=== PATIENT | female | born 1955 | race Caucasian/White ===

== ENCOUNTER 2023-12-03 17:44 | Inpatient (IN) | payer MEDICARE, OTHER, SELFPAY ==
[2023-12-03 12:19] VITALS: BP 176/97
[2023-12-03] MEDS: DUONEB 3 ML INH ×2 (13:18→15:56)
[2023-12-03] MEDS: DECADRON 10 MG PO (13:35)
[2023-12-03 13:51] LABS: % Basophils 0.5 % (0-2); % Eosinophils 2.1 % (0-6); % Immature Granulocytes 0.8 % (0-0.5); % Lymphocytes 11.9 % (20.5-51.1); % Monocytes 8.6 % (1.7-9.3); % Neutrophils 76.1 % (42.2-75.2); Absolute Basophils 0.1 10^3/uL (0-0.2); Absolute Eosinophils 0.2 10^3/uL (0-0.7); Absolute Immature Granulocytes 0.1 10^3/uL (0-0.05); Absolute Lymphocytes 1.1 10^3/uL (1.2-3.4); Absolute Monocytes 0.8 10^3/uL (0.1-0.6); Absolute Neutrophils 7.2 10^3/uL (1.4-6.5); Hematocrit 45.5 % (37.0-47.0); Hemoglobin 14.7 g/dL (12.0-16.0); Mean Corp Hgb Conc. 32.3 g/dL (33.0-37.0); Mean Corpuscular Hgb 28.2 pg (27.0-31.0); Mean Corpuscular Volume 87.3 fL (81.0-99.0); Mean Platelet Volume 8.8 fL (7.4-10.4); Nucleated Red Blood Cells % 0 %; Platelet Count 175 10^3/uL (130-400); Red Blood Cell Count 5.21 10^6/uL (4.20-5.40); Red Cell Dist. Width 13.5 % (11.5-14.5); White Blood Cell Count 9.4 10^3/uL (4.8-10.8)
[2023-12-03 14:34] LABS: ALT (SGPT) 19 U/L (0-35); AST (SGOT) 27 U/L (14-36); Albumin 3.6 g/dl (3.5-5.0); Alkaline Phosphatase 87 U/L (38-126); Blood Urea Nitrogen 12 mg/dl (7-17); Calcium 9.6 mg/dl (8.4-10.2); Carbon Dioxide 34 mmol/L (22-30); Chloride 98 mmol/L (98-107); Glucose 120 mg/dl (70-99); Potassium 4.2 mmol/L (3.5-5.1); Sodium 137 mmol/L (135-145); Total Bilirubin 0.5 mg/dl (0.2-1.3); Total Protein 6.2 g/dl (6.3-8.2); eGFR > 60.00
[2023-12-03 15:08] VITALS: BP 134/74
--- NOTE | 2023-12-03 15:55 | ED.GENMED ---
History of Present Illness
General
Chief Complaint: Breathing Problem
Source: patient and spouse
Exam Limitations: none
Time Seen by Provider: 12/03/23 12:51
Nursing documentation reviewed up to this point in time: agreed with
Travel History
Have you had any contact with someone who has COVID-19?: No
Do you have any symptoms of coronavirus? Fever > 100 degrees, chills, cough, shortness of breath, sore throat, loss of taste or smell, muscle aches, or headache?: No
History of Present Illness
History of Present Illness:
68-year-old female past medical history of COPD presenting to the emergency department today with concerns of upper respiratory symptoms over the past week was initially treated with azithromycin by her primary care doctor but has had ongoing
symptoms and worsening shortness of breath over the past 2 days or so. Denies specific chest pain nausea vomiting fevers.
Review of Systems
Review of Systems
Allergies reviewed?: Yes
All Other Systems: ROS reviewed and negative except as documented in HPI and ROS
Phy Exam
Physical Exam
Physical Exam:
GENERAL: Alert , in no apparent distress
EYE: pupils equal and reactive
NECK: Supple, no significant adenopathy.
ENT: o/p clr, mmm.
CARDIAC: Regular rate and rhythm .
LUNGS: Diffuse inspiratory and expiratory wheezing
ABDOMEN: Soft, without focal tenderness, no r/g, no cvat
NEUROLOGICAL: Alert and oriented, no focal neuro deficits
SKIN: Warm and dry, skin intact.
MUSCULOSKELETAL: No edema, well perfused.
PSYCH: Normal and appropriate interaction.
Scores
Heart Failure Risk
Heart Failure Risk Score: Not Applicable
Course
Orders/Labs/Results
Orders:
Orders
12/03/23 12:58
Dexamethasone [Decadron] 10 mg PO NOW STA
Ipratropium/Albuterol Sulfate [Duoneb] 3 ml INH R NOW ONE
Chest [CR Chest - 2 Views ] Urgent
Comment:
Reason For Exam: sob cough
12/03/23 13:17
EKG [Electrocardiogram (*1)] Urgent
Reason for Study: Shortness of Breath
EKG- Treatment ONCE
12/03/23 13:42
CBC/With Diff [Complete Blood Count/With Diff] Urgent
CMP [Comprehensive Metabolic Panel] Urgent
Lactic Acid Urgent
12/03/23 15:51
Ipratropium/Albuterol Sulfate [Duoneb] 3 ml INH R NOW ONE
Abnormal Lab Results
12/03/23
13:42
MCHC 32.3 L g/dL
(33.0-37.0)
Abs Immat Gran (auto) 0.1 H 10^3/uL
(0-0.05)
Absolute Neuts (auto) 7.2 H 10^3/uL
(1.4-6.5)
Absolute Lymphs (auto) 1.1 L 10^3/uL
(1.2-3.4)
Absolute Monos (auto) 0.8 H 10^3/uL
(0.1-0.6)
Immature Gran % 0.8 H %
(0-0.5)
Neutrophils % 76.1 H %
(42.2-75.2)
Lymphocytes % 11.9 L %
(20.5-51.1)
Carbon Dioxide 34 H mmol/L
(22-30)
Glucose 120 H mg/dl
(70-99)
Total Protein 6.2 L g/dl
(6.3-8.2)
12/03/23 13:42
12/03/23 13:42
Vital Signs
Initial and Last Documented VS:
Initial Vital Signs
Temp Pulse Resp BP Pulse Ox
98.4 F 109 18 176/97 83
12/03/23 12:19 06/03/24 12:19 12/03/23 12:19 12/03/23 12:19 12/03/23 12:19
Last Documented Vital Signs
Temp Pulse Resp BP Pulse Ox
98.4 F 84 16 134/74 97
12/03/23 12:19 12/03/23 15:08 12/03/23 15:08 12/03/23 15:08 12/03/23 15:08
MDM/Problems Addressed
MDM/Problems Addressed:
68-year-old female presenting to the emergency department today with concerns of worsening shortness of breath with viral syndrome 1 week ago. Upon arrival tachycardic and hypertensive O2 sat in the low 80s improving with nasal cannula oxygen.
Patient had diffuse wheezing with started on DuoNeb as well as steroid chest x-ray without signs of pneumonia. Vital signs improving after treat lungs improving pulse ox still drop into the high 80s when off of nasal cannula oxygen. Does not use
oxygen at home plan to admit for further treatment and monitoring.
*Critical Care Note
Total Time (30-74mins, 75-104mins- exclusive of procedures): Not Applicable
ED Attending Note
-
Portions of this chart may have been created with voice recognition software.� Occasional wrong word or��sound alike� substitutions may have occurred due to the inherent limitations of voice recognition software.
Discharge Plan
Departure
Patient Disposition: Admit
Date of Disposition: 12/03/23
Time of Disposition: 15:59
Admit to: Telemetry
Admit to doctor: Kellee
Presentation/result/management discussed w/ accepting MD/DO: Hospitalist
Patient with high blood pressure during this ER visit?: No
Condition: Good
Covid-19: Not Applicable
Discharge Problem:
COPD exacerbation, Hypoxemia
Referrals:
Enriqueta Arora CRNP [Family Provider] -
Interventions
Interventions:
*Risk Screen - Suicide Last Done: 12/03/23 12:19
*General Assessment Last Done: 12/03/23 12:19
*Neglect/Abuse Screening Last Done: 12/03/23 12:19
ED- Fall Risk Assessment Last Done: 12/03/23 13:46
*ED COVID-19 Vaccine History Last Done: 12/03/23 12:19
ED- Cardiac Assessment Last Done: 12/03/23 13:46
ED- Pulmonary Assessment Last Done: 12/03/23 13:46
Discharge Date and Time
Print Language: INDONESIAN
--- NOTE | 2023-12-03 16:46 | HPS.HSE ---
Addendum entered and electronically signed by Jamey Hernandes MD 12/03/23 17:09:
I saw and examined the patient.
The ECOLOGY TEACHER or PA's note was reviewed and I agree with the note.
Comment: 68-year-old female with past medical history of COPD came to the hospital with shortness of breath and chest tightness. Profusely wheezing in ED. IV Decadron, DuoNebs given. Per patient she has finished course of azithromycin a week ago.
She does not see any chief power dispatcher outpatient. Chest x-ray without pneumonia. Consult pulmonary. DuoNeb 4 times daily, as needed. Start IV steroids. Mucinex, Tessalon Perles. Acapella. If symptoms do not improve then would add doxycycline.
Currently on 2 L. Wean oxygen as tolerated
General: Comfortable,mild dyspnea
HEENT: Anicteric, Moist mucous membranes and Oxygen (Nasal Cannula)
Respiratory: Wheezes (Diffuse Expiratory Wheeze) and Non Labored Respirations
Cardiac: S1/S2 and Regular Rhythm
GI: Soft and Non Tender
Rectal: Deferred by Provider
Musculoskeletal: No Clubbing and No Edema
Skin: Warm and Dry
Neuro: Awake, Alert, Oriented and Nonfocal/grossly intact
I spent a total of 77 minutes with the patient or on the floor. More than 50% of this time involved counseling and coordination of care.
Original Note:
Family Physician
-
Family Physician: Enriqueta Arora
Chief Complaint
-
Shortness of Breath
History of Present Illness
This is a 68 year old female with past medical history of COPD presents with shortness of breath x 2 days. Patient reports she noticed she was becoming very short of breath yesterday at home after she had a cold that her PCP treated with Zithromax,
which she finished on 11/27/23. She admits her dyspnea continued to worsen prompting her to present to the emergency department today. She notes she has been to the hospital previously for COPD exacerbation several years ago but has never required
intubation. Additionally, she reports a nonproductive cough. She denies fevers, chills, and sweats.
Medical History
Past Medical History
Past Medical History: Reports Other
Additional Past Medical History:
COPD
Solitary Kidney
Past Surgical History: Reports Other
Additional Past Surgical History:
Nephrectomy
Tonsillectomy
Social History
Tobacco: Former Smoker (Quit about 5 years ago)
Family History
Family History: Not pertinent
Allergies / Home Medications
Allergies reflects when Allergies were last updated in [facility].
Home Medications with original date entered in [facility]
Allergy/Medication List:
Allergies
Allergy/AdvReac Type Severity Reaction Status Date / Time
Sulfa (Sulfonamide Allergy Tongue Verified 12/03/23 12:22
Antibiotics) Swelling
Home Medications
albuterol sulfate 90 mcg/actuation aerosol inhaler (ProAir HFA) 2 puff inhalation R Q6HPRN PRN sob 12/03/23
fluticasone fur. 200 mcg-umeclid 62.5 mcg-vilant 25 mcg inhalat.powder (Trelegy Ellipta) 1 inh inhalation R DAILY 12/03/23
ibuprofen 200 mg tablet (Advil) 200 mg PO Q6HPRN PRN muscle pains 12/03/23
roflumilast 500 mcg tablet 500 mcg PO DAILY 12/03/23
Review of Systems
-
A 12 point ROS was completed and negative except as noted: Yes
Constitutional: Denies Fever or Chills
Respiratory: Reports Cough and Trouble Breathing
Cardiac: Denies Chest Pain or Palpitations
Physical Exam
Vital Signs
Vital Signs
Temp Pulse Resp BP Pulse Ox
98.4 F 84 16 134/74 97
12/03/23 12:19 12/03/23 15:08 12/03/23 15:08 12/03/23 15:08 12/03/23 15:08
Physical Exam
General: Comfortable and Conversant (Slight conversational dyspnea dropping pulse ox to 89% )
HEENT: Anicteric, Moist mucous membranes and Oxygen (Nasal Cannula)
Respiratory: Wheezes (Diffuse Expiratory Wheeze) and Non Labored Respirations
Cardiac: S1/S2 and Regular Rhythm
GI: Soft and Non Tender
Rectal: Deferred by Provider
Musculoskeletal: No Clubbing and No Edema
Skin: Warm and Dry
Neuro: Awake, Alert, Oriented and Nonfocal/grossly intact
Laboratory Results
-
12/03/23 13:42
12/03/23 13:42
Laboratory Results
Lactic Acid 1.0 mmol/L (0.7-2.0) 12/03/23 13:42
Total Bilirubin 0.5 mg/dl (0.2-1.3) 12/03/23 13:42
AST 27 U/L (14-36) 12/03/23 13:42
ALT 19 U/L (0-35) 12/03/23 13:42
Alkaline Phosphatase 87 U/L (38-126) 12/03/23 13:42
Data Reviewed
-
Lab Data: Labs Reviewed by me
Impression/Plan
-
Acute Hypoxic Respiratory Insufficiency secondary to Acute COPD Exacerbation
-Consult Pulmonary
-Continue supplemental oxygen
-Continue Decadron 4mg q6
-Continue Pulmicort neb
-Continue Duoneb QID and PRN
-Add Mucinex and Tessalon Perles
-Continue roflumilast as prior to admission
DVT proph: Lovenox
Code Status: Full Code
--- NOTE | 2023-12-03 17:09 | W.PN.UPDATE ---
Update Note
Progress Note Update
For billing purpose only
[2023-12-03 20:30] VITALS: BMI 26.8
[2023-12-03] MEDS: PULMICORT 0.5 MG INH (20:30)
--- NOTE | 2023-12-03 20:30 | PTCARENOTE ---
Received patient from ED via stretcher. Patient ambulated from stretcher to bed. AAOx3, no current complaints of pain. Patient reports BLISS, 91-93% on 2L O2. Oriented patient to room and placed call melton within reach.
[2023-12-03] MEDS: DUONEB INH (20:43)
[2023-12-03] MEDS: LOVENOX 40 MG SC (21:46)
[2023-12-03] MEDS: MUCINEX 600 MG PO (21:46)
[2023-12-03] MEDS: DECADRON 4 MG IV (21:47)
[2023-12-03 23:40] VITALS: BP 173/84
[2023-12-04 03:26] VITALS: BP 149/83
[2023-12-04] MEDS: DECADRON 4 MG IV ×4 (03:54→22:24)
[2023-12-04 04:54] LABS: Hematocrit 44.9 % (37.0-47.0); Hemoglobin 14.4 g/dL (12.0-16.0); Mean Corp Hgb Conc. 32.1 g/dL (33.0-37.0); Mean Corpuscular Volume 87.2 fL (81.0-99.0); Mean Platelet Volume 9.4 fL (7.4-10.4); Platelet Count 200 10^3/uL (130-400); Red Blood Cell Count 5.15 10^6/uL (4.20-5.40); Red Cell Dist. Width 13.4 % (11.5-14.5); White Blood Cell Count 7.7 10^3/uL (4.8-10.8)
[2023-12-04 05:24] LABS: Blood Urea Nitrogen 18 mg/dl (7-17); Calcium 9.4 mg/dl (8.4-10.2); Carbon Dioxide 32 mmol/L (22-30); Chloride 97 mmol/L (98-107); Estimated Creatinine Clearance 70 ml/min; Glucose 132 mg/dl (70-99); Potassium 4.9 mmol/L (3.5-5.1); Sodium 133 mmol/L (135-145); eGFR > 60.00
[2023-12-04] MEDS: PULMICORT 0.5 MG INH ×2 (07:22→21:19)
[2023-12-04] MEDS: DUONEB 3 ML INH ×4 (07:22→21:18)
[2023-12-04 07:30] VITALS: BP 165/91
[2023-12-04] MEDS: DALIRESP 500 MCG PO (08:41)
[2023-12-04] MEDS: MUCINEX 600 MG PO ×2 (08:41→20:30)
[2023-12-04] MEDS: LIDOCAINE 4% PATCH 2 PATCH TOPICAL (08:42)
[2023-12-04 08:43] VITALS: BP 165/91
[2023-12-04 08:49] LABS: Glucose - Point of Care 143 mg/dl (70-99)
--- NOTE | 2023-12-04 09:22 | PTCARENOTE ---
Patient reports pain to the R side of chest specifically under R breast. 'Sharp pain that worsens with deep breathing.' Pulse ox of 92% on 2L. Pulmonary with patient at bedside. Urgent cat scan of chest ordered.
--- NOTE | 2023-12-04 09:40 | CON.PUL ---
Consultation
Consultation Request
Date/Time Consultation Requested: 12/04/23-8 AM
Date/Time Consultation Performed: 12/04/23-8:30 AM
Requesting Provider: Hospitalist
Performing Provider: Dr. Jamison
Reason for Consultation: Shortness of breath
Medical History
-
Chief Complaint: Shortness of breath
History of Present Illness:
68-year-old female with a history of COPD maintained on Trelegy not on home oxygen with long smoking history quit 5 years ago, 'still smoking pot' who presented with COPD exacerbation-pulmonary consulted for COPD exacerbation and pleuritic chest
pain 12/04/2023. Patient states that she has severe right-sided pleuritic chest pain. She been coughing for 3 weeks. She admits to increasing shortness of breath, increased wheezing, using her albuterol rescue inhaler frequently but denies any
chest congestion, productive cough, hemoptysis, anorexia, unintentional weight loss, abdominal pain, reflux, leg swelling.
Past Medical History
Past Medical History: None (COPD. Former [id number]-[id number]-year quit 5 years ago. Marijuana smoker. Solitary kidney. Nephrectomy. Tonsillectomy.)
Social History
Tobacco: Former Smoker ([id number] quit 5 years ago)
Drug: Marijuana
Living: With Family
Occupational Exposures: No known asbestos exposure
Environmental Exposures: no known tuberculosis exposure
Family History
Family History: Reviewed & Not Pertinent
Allergies / Home Medications
Allergies
Allergy/AdvReac Type Severity Reaction Status Date / Time
Sulfa (Sulfonamide Allergy Tongue Verified 12/03/23 12:22
Antibiotics) Swelling
Home Medications
�Medication �Instructions �Recorded �Confirmed �Last Taken �Type
albuterol sulfate 90 mcg/actuation 2 puff inhalation R Q6HPRN PRN sob 12/03/23 12/03/23 Unknown History
aerosol inhaler (ProAir HFA)
fluticasone fur. 200 mcg-umeclid 1 inh inhalation R DAILY 06/09/2212/03/23 12/03/23 History
62.5 mcg-vilant 25 mcg Lung/Breathing Issues
inhalat.powder (Trelegy Ellipta)
ibuprofen 200 mg tablet (Advil) 200 mg PO Q6HPRN PRN muscle pains 12/03/23 12/03/23 12/02/23 History
roflumilast 500 mcg tablet 500 mcg PO DAILY Lung/Breathing 12/03/23 12/03/23 12/03/23 History
Issues
Review of Systems
-
Unable to Obtain full review of systems at this time due to: Other (Per HPI)
Vitals / Labs / Diagnostic Testing
Vital Signs
Temp Pulse Resp BP Pulse Ox
97.3 F 92 24 165/91 92
12/04/23 07:30 12/04/23 07:30 12/04/23 07:30 12/04/23 07:30 12/04/23 08:58
Lab Data
12/04/23 04:39
12/04/23 04:39
Diagnostic Testing:
Physical Exam
-
Exam:
Well-nourished and well-developed in no apparent distress
HEENT-atraumatic, normocephalic
Neck-supple, no JVD, no bruit
Heart-regular rate and rhythm-no murmurs, rubs or gallops
Chest with diminished breath sounds, prolonged expiratory time, forced expiratory wheezes and no crackles
Abdomen-soft, nontender, nondistended, no hepatosplenomegaly
Extremities-no cyanosis, clubbing, edema and good peripheral pulses
Integument-intact, no rashes, lesions or ecchymosis
Neurology-alert and oriented, nonfocal motor and sensory exam
Assessment
-
68-year-old female with a history of COPD maintained on Trelegy not on home oxygen with long smoking history quit 5 years ago, 'still smoking pot' who presented with COPD exacerbation-pulmonary consulted for COPD exacerbation and pleuritic chest
pain 12/04/2023.
COPD-suspect Gold stage III with acute exacerbation
Right-sided pleuritic chest pain-CT chest pending
Mild hyponatremia
Hyperglycemia
Conditions present prior to admission:
COPD.
Former [id number]-[id number]-bgxc-year quit 5 years ago.
Marijuana smoker.
Solitary kidney.
Nephrectomy.
Tonsillectomy.
Plan
Patient requires admission for severe COPD exacerbation
Supplemental oxygen as needed-does not have home oxygen
Assess discharge supplemental oxygen needs closer to time of discharge
Consider ABG-admission bicarb mildly elevated suggests possible underlying chronic mild hypercapnia
BiPAP if needed
Check CT chest with PE protocol with right-sided pleuritic chest pain
Duo nebs
Pulmicort nebulizers
Mucolytic's
Decadron 4 mg IV every 6 hours initiated
Antitussives
Incentive spirometry
Acapella
Consider vest if difficulties mobilizing secretions
Consider chest physiotherapy if difficulties mobilizing secretions
No obvious signs of infection
Observe off antibiotics
Monitor blood sugars
Insulin supplementation as needed
Marijuana smoking cessation counseling ongoing-she states she will quit
DVT prophylaxis-on Lovenox
GI prophylaxis recommended if on steroids for prolonged period
Early nutrition
Early mobilization
Reviewed with nursing, respiratory therapy, and primary team.
Outpatient pulmonary follow-up recommended
Diagnostic data:
Chest x-ray 12/03/2023-NAD
Data Reviewed
-
EKG: Report reviewed by me
Radiology: Report reviewed by me
Medical Tests (Nuc Med, Echo etc): Report reviewed by me
Labs: Labs reviewed by me
Old Records: Reviewed
Total Time Spent with Patient (in minutes): 65
[2023-12-04] MEDS: MORPHINE SULFATE 1 MG IV ×2 (09:41→10:58)
[2023-12-04] MEDS: BENADRYL 50 MG IV (11:27)
[2023-12-04] MEDS: SOLU-CORTEF 200 MG IV (11:28)
--- NOTE | 2023-12-04 11:30 | W.PN.HOSP.TC ---
Today's Communication/Plan
-
Monitor vital signs
see plan
Continue with IV steroids, labs
Pulmonary following
CT chest
pain control
Assessment / Plan
Assessment / Plan
General: Comfortable,mild dyspnea
HEENT: Anicteric, Moist mucous membranes and Oxygen (Nasal Cannula)
Respiratory: Wheezes (Diffuse Expiratory Wheeze)
Cardiac: S1/S2 and Regular Rhythm
GI: Soft and Non Tender
Musculoskeletal: No Edema
Neuro: Awake, Alert, Oriented and Nonfocal/grossly intact
Acute Hypoxic Respiratory Insufficiency secondary to Acute COPD Exacerbation
Pulmonary following
Patient COPD is not controlled, has been using rescue Hailer frequently
On Trelegy at home
Continue with IV Decadron, budesonide and DuoNebs
-Continue supplemental oxygen
-Add Mucinex and Tessalon Perles
-Continue roflumilast as prior to admission
elevated BP
no prior hx
could be 2/2 pain
hydralazine prn
mild hyponatremia
monitor
Right sided pleuritic chest pain
CT ordered by pulmonary
reports allergy to contrast; prep ordered
lidocaine patch for pain
DVT proph: Lovenox
Code Status: Full Code
Anticipated Discharge: > 48 hours
Subjective/Interval History
-
Date of Service: December 04, 2023
has pleuritic pain today
Objective Data
-
Labs:
Laboratory Results
12/04/23
04:39
WBC 7.7
Hgb 14.4
Hct 44.9
Plt Count 200
Sodium 133 L
Potassium 4.9
Chloride 97 L
Carbon Dioxide 32 H
BUN 18 H
Creatinine 0.7
Glucose 132 H
Calcium 9.4
Vital Signs:
Vital Signs
Temp Pulse Resp BP Pulse Ox
97.3 F 92 24 165/91 92
12/04/23 07:30 12/04/23 07:30 12/04/23 07:30 12/04/23 07:30 12/04/23 08:58
I&O
12/03/23 12/04/23 12/05/23
06:59 06:59 06:59
Intake Total 780 / 780
Balance 780 / 780
[2023-12-04] MEDS: PROTONIX IV 40 MG IV (11:58)
[2023-12-04] MEDS: DILAUDID 0.5 MG IV ×3 (11:58→22:31)
[2023-12-04] MEDS: NSS (PRESERVATIVE FREE) 10 ML IV (11:58)
[2023-12-04 14:25] VITALS: BP 127/62
--- NOTE | 2023-12-04 14:46 | CM ---
CM consult received for Advance Directive. I met with Fatmata briefly, as she had a vistor in the room. I provided her with the advance directive and provided my card for her to contact me after she has reviewed the form.
CM will follow to answer any questions Felicita has regarding the completion of the living will.
[2023-12-04 23:00] VITALS: BP 127/58
[2023-12-04 23:59] VITALS: BP 122/54
[2023-12-05] MEDS: DECADRON 4 MG IV ×3 (04:35→17:08)
[2023-12-05] MEDS: DILAUDID 0.5 MG IV ×3 (04:58→20:54)
[2023-12-05 05:54] LABS: % Basophils 0.2 % (0-2); % Immature Granulocytes 1.5 % (0-0.5); % Lymphocytes 4.3 % (20.5-51.1); % Monocytes 5.5 % (1.7-9.3); % Neutrophils 88.5 % (42.2-75.2); Absolute Immature Granulocytes 0.2 10^3/uL (0-0.05); Absolute Lymphocytes 0.6 10^3/uL (1.2-3.4); Absolute Monocytes 0.8 10^3/uL (0.1-0.6); Absolute Neutrophils 13.3 10^3/uL (1.4-6.5); Hematocrit 41.7 % (37.0-47.0); Hemoglobin 12.9 g/dL (12.0-16.0); Mean Corp Hgb Conc. 30.9 g/dL (33.0-37.0); Mean Corpuscular Hgb 28.4 pg (27.0-31.0); Mean Corpuscular Volume 91.9 fL (81.0-99.0); Mean Platelet Volume 9.7 fL (7.4-10.4); Nucleated Red Blood Cells % 0 %; Platelet Count 213 10^3/uL (130-400); Red Blood Cell Count 4.54 10^6/uL (4.20-5.40); Red Cell Dist. Width 13.9 % (11.5-14.5)
[2023-12-05 06:17] LABS: Blood Urea Nitrogen 27 mg/dl (7-17); Calcium 9.1 mg/dl (8.4-10.2); Carbon Dioxide 33 mmol/L (22-30); Chloride 97 mmol/L (98-107); Estimated Creatinine Clearance 70 ml/min; Glucose 153 mg/dl (70-99); Potassium 4.8 mmol/L (3.5-5.1); Sodium 134 mmol/L (135-145); eGFR > 60.00
[2023-12-05 07:40] VITALS: BP 129/60
[2023-12-05] MEDS: DUONEB 3 ML INH ×4 (07:41→19:20)
[2023-12-05] MEDS: PULMICORT 0.5 MG INH ×2 (07:41→19:20)
[2023-12-05 08:50] VITALS: BP 129/60
[2023-12-05] MEDS: MUCINEX 600 MG PO ×2 (09:26→20:54)
[2023-12-05] MEDS: PROTONIX IV 40 MG IV (09:26)
[2023-12-05] MEDS: DALIRESP 500 MCG PO (09:26)
[2023-12-05] MEDS: NSS (PRESERVATIVE FREE) 10 ML IV (09:27)
[2023-12-05] MEDS: FLUSH (NSS) 2 FLUSH IV ×3 (09:28→17:09)
[2023-12-05] MEDS: TESSALON PERLES 200 MG PO ×3 (09:32→21:04)
[2023-12-05] MEDS: LIDOCAINE 4% PATCH TOPICAL (09:34)
--- NOTE | 2023-12-05 10:04 | W.PN.PUL.V3 ---
Today's Communication / Plan
-
.
CT chest noted.
Rectus sheath hematoma noted
Wean oxygen.
Continue nebulizers.
Decrease Decadron
Assessment
-
68-year-old female with a history of COPD maintained on Trelegy not on home oxygen with long smoking history quit 5 years ago, 'still smoking pot' who presented with COPD exacerbation-pulmonary consulted for COPD exacerbation and pleuritic chest
pain 12/04/2023.
COPD-suspect Gold stage III with acute exacerbation
Right-sided pleuritic chest pain-CT chest -right rectus hematoma
Right upper lobe pulmonary nodule as well as other pulmonary nodules
Right abdominal rectus sheath hematoma
Mild hyponatremia
Hyperglycemia
Conditions present prior to admission:
COPD.
Former frdfym-37-[id number]-year quit 5 years ago.
Marijuana smoker.
Solitary kidney.
Nephrectomy.
Tonsillectomy.
Plan
.
Respiratory status slowly improving-continues to have significant wheezing.
Supplemental oxygen as needed-attempt to wean
Assess discharge supplemental oxygen needs closer to time of discharge
CT chest 12/04/23-negative for pulmonary embolism, upper abdomen, right side rectus hematoma, severe changes of emphysema, spiculated density medial right upper lobe, several small well-defined nodules are also seen in the lung, largest measuring 5 mm
in the right upper lobe and 3 mm in the left upper lobe
Will need a CT chest at a minimum in 3 months -CT chest ION-we will arrange for follow-up after this hospitalization
Duonebs
Pulmicort nebulizers
Mucolytic's
Decadron 4 mg IV every 6 hours initiated-will begin to decrease
Antitussives
Incentive spirometry
Acapella
Consider vest if difficulties mobilizing secretions
Consider chest physiotherapy if difficulties mobilizing secretions
No obvious signs of infection
Observe off antibiotics
Monitor blood sugars
Insulin supplementation as needed
Marijuana smoking cessation counseling ongoing-she states she will quit
DVT prophylaxis-on Lovenox
GI prophylaxis recommended if on steroids for prolonged period
Early nutrition
Early mobilization
Reviewed with nursing, respiratory therapy, and primary team.
Outpatient pulmonary follow-up recommended-needs repeat CT chest ION in 3 months, PFTs, yearly Lung cancer screening, etc.
Diagnostic data:
Chest x-ray 12/03/2023-NAD
CT chest 12/04/23-negative for pulmonary embolism, upper abdomen, right side rectus hematoma, severe changes of emphysema, spiculated density medial right upper lobe, several small well-defined nodules are also seen in the lung, largest measuring 5 mm
in the right upper lobe and 3 mm in the left upper lobe
Subjective Data
-
Date of Service:
Date of Service: December 05, 2023
Chief Complaint: Pulmonary Follow Up and Dyspnea Follow Up
Subjective:
Pain, much better controlled on Dilantin, no complaints of worsening sugars of breath, still has significant wheezing, no chest pain, pleurisy, or abdominal pain
Review of Systems
General: Other ( per HPI)
Objective Data
Data Reviewed
Vital Signs / I&O:
Vital Signs
Temp Pulse Resp BP Pulse Ox
97.4 F 78 18 129/60 93
12/05/23 07:40 12/05/23 08:10 12/05/23 08:10 12/05/23 07:40 12/05/23 08:10
Intake and Output
12/04/23 12/05/23 12/06/23
06:59 06:59 06:59
Intake Total 780 / 780 840 / 840
Balance 780 / 780 840 / 840
SaO2: 93
Nasal Cannula flow liters per minute: 2
Physical Exam
General: Respiratory Distress (n) and Comfortable
HEENT: Normocephalic, Anicteric and Moist Mucous Membranes
Cardiovascular: Regular Rhythm
Respiratory: Clear ( diminished breath sounds and prolonged expiratory time), Wheeze ( diffuse expiratory), Crackles (n), Rhonchi, Non-Labored Respirations, Accessory Resp Muscle Use (n) and Stridor (n)
GI: Soft and Non Distended
Neurology: Awake and No Motor Deficits
Skin: Good Color, Cyanosis (n) and Jaundice
Labs/Micro/Reports
Lab Data
12/05/23 04:38
12/05/23 04:38
--- NOTE | 2023-12-05 11:14 | W.PN.HOSP.TC ---
Today's Communication/Plan
-
Monitor vital signs and see plan
Pain today appears to be improving, continue with pain control
Still with cough, make Tessalon Perles standing
Wean oxygen as tolerated
Continue with nebs, steroids
Assessment / Plan
Assessment / Plan
General: Comfortable,mild dyspnea
HEENT: Anicteric, Moist mucous membranes and Oxygen (Nasal Cannula)
Respiratory: Wheezes (Diffuse Expiratory Wheeze)
Cardiac: S1/S2 and Regular Rhythm
GI: Soft and Non Tender
Musculoskeletal: No Edema
Neuro: Awake, Alert, Oriented and Nonfocal/grossly intact
Acute Hypoxic Respiratory Insufficiency secondary to Acute COPD Exacerbation
Pulmonary following
Patient COPD is not controlled, has been using rescue Hailer frequently
On Trelegy at home
Continue with IV Decadron, budesonide and DuoNebs
-Continue supplemental oxygen
-cwMucinex and Tessalon Perles
-Continue roflumilast as prior to admission
CT chest without PE, did show severe emphysema. Also showed pulmonary nodule. Right-sided rectus hematoma
Wean O2 as tolerated
Acute right-sided rectus hematoma likely secondary to persistent cough
Monitor
Ice application
Pain control
monitor hgb
elevated BP
no prior hx
could be 2/2 pain
hydralazine prn
mild hyponatremia
monitor
Right sided pleuritic chest pain
CT ordered by pulmonary
reports allergy to contrast; prep ordered
lidocaine patch for pain
DVT proph: SCD's
Code Status: Full Code
I spent a total of 52 minutes with the patient or on the floor. More than 50% of this time involved counseling and coordination of care.
Anticipated Discharge: > 48 hours
Subjective/Interval History
-
Date of Service: December 05, 2023
Pain is slowly improving
Objective Data
-
Labs:
Laboratory Results
12/05/23
04:38
WBC 15.0 H
Hgb 12.9
Hct 41.7
Plt Count 213
Sodium 134 L
Potassium 4.8
Chloride 97 L
Carbon Dioxide 33 H
BUN 27 H
Creatinine 0.7
Glucose 153 H
Calcium 9.1
Vital Signs:
Vital Signs
Temp Pulse Resp BP Pulse Ox
97.4 F 78 18 129/60 93
12/05/23 07:40 12/05/23 08:10 12/05/23 08:10 12/05/23 07:40 12/05/23 10:04
I&O
12/04/23 12/05/23 12/06/23
06:59 06:59 06:59
Intake Total 780 / 780 840 / 840
Balance 780 / 780 840 / 840
--- NOTE | 2023-12-05 13:14 | CM ---
Follow up re: Advance Directive today. Felicita did not look at it yet because she did not have her glasses, so I told her I would check back later today or tomorrow.
PLAN: F/U with Felicita regarding completion and/or questions re: advance directives.
[2023-12-05 15:15] VITALS: BP 127/59
[2023-12-05 22:50] VITALS: BP 151/79
[2023-12-06] MEDS: DECADRON 4 MG IV ×3 (03:13→17:00)
[2023-12-06] MEDS: DILAUDID 0.5 MG IV ×3 (03:14→22:31)
[2023-12-06 05:48] LABS: % Basophils 0.4 % (0-2); % Immature Granulocytes 3.6 % (0-0.5); % Lymphocytes 4.5 % (20.5-51.1); % Monocytes 7.2 % (1.7-9.3); % Neutrophils 84.3 % (42.2-75.2); Absolute Basophils 0.1 10^3/uL (0-0.2); Absolute Immature Granulocytes 0.5 10^3/uL (0-0.05); Absolute Lymphocytes 0.6 10^3/uL (1.2-3.4); Hemoglobin 12.6 g/dL (12.0-16.0); Mean Corp Hgb Conc. 31.5 g/dL (33.0-37.0); Mean Corpuscular Hgb 28.3 pg (27.0-31.0); Mean Corpuscular Volume 89.9 fL (81.0-99.0); Mean Platelet Volume 9.7 fL (7.4-10.4); Nucleated Red Blood Cells % 0 %; Platelet Count 214 10^3/uL (130-400); Red Blood Cell Count 4.45 10^6/uL (4.20-5.40); White Blood Cell Count 14.3 10^3/uL (4.8-10.8)
[2023-12-06 06:03] LABS: Blood Urea Nitrogen 26 mg/dl (7-17); Calcium 9.1 mg/dl (8.4-10.2); Carbon Dioxide 35 mmol/L (22-30); Chloride 97 mmol/L (98-107); Estimated Creatinine Clearance 70 ml/min; Glucose 130 mg/dl (70-99); Potassium 4.9 mmol/L (3.5-5.1); Sodium 137 mmol/L (135-145); eGFR > 60.00
[2023-12-06 07:55] VITALS: BP 149/77
[2023-12-06] MEDS: PULMICORT 0.5 MG INH ×2 (07:57→20:48)
[2023-12-06] MEDS: DUONEB 3 ML INH ×4 (07:57→20:48)
[2023-12-06] MEDS: PROTONIX IV 40 MG IV (09:20)
[2023-12-06] MEDS: NSS (PRESERVATIVE FREE) 10 ML IV (09:23)
[2023-12-06] MEDS: FLUSH (NSS) 2 FLUSH IV ×4 (09:23→22:32)
[2023-12-06] MEDS: TESSALON PERLES 200 MG PO ×3 (09:24→21:28)
[2023-12-06] MEDS: FLUSH (NSS) 1 FLUSH IV (09:24)
[2023-12-06] MEDS: MUCINEX 600 MG PO ×2 (09:24→21:27)
[2023-12-06] MEDS: DALIRESP 500 MCG PO (09:24)
[2023-12-06] MEDS: LIDOCAINE 4% PATCH TOPICAL (09:25)
--- NOTE | 2023-12-06 09:29 | W.PN.PUL.V3 ---
Today's Communication / Plan
-
No change in Decadron
Increase activity
Wean FiO2
Probable change to prednisone in the next 24 hours with slow taper
Outpatient pulm evaluation
Assessment
-
68-year-old female with a history of COPD maintained on Trelegy not on home oxygen with long smoking history quit 5 years ago, 'still smoking pot' who presented with COPD exacerbation-pulmonary consulted for COPD exacerbation and pleuritic chest
pain 12/04/2023.
COPD-suspect Gold stage III with acute exacerbation
Right-sided pleuritic chest pain-CT chest -right rectus hematoma
Right upper lobe pulmonary nodule as well as other pulmonary nodules
Right abdominal rectus sheath hematoma
Mild hyponatremia
Hyperglycemia
Conditions present prior to admission:
COPD.
Former [id number]-year quit 5 years ago.
Marijuana smoker.
Solitary kidney.
Nephrectomy.
Tonsillectomy.
Plan
.
Pulmonary status improving but still has quite a bit of wheezing
Supplemental oxygen as needed-attempt to wean
Assess discharge supplemental oxygen needs closer to time of discharge
CT chest 12/04/23-negative for pulmonary embolism, upper abdomen, right side rectus hematoma, severe changes of emphysema, spiculated density medial right upper lobe, several small well-defined nodules are also seen in the lung, largest measuring 5 mm
in the right upper lobe and 3 mm in the left upper lobe
Analgesia per primary service
Will need a CT chest at a minimum in 3 months -CT chest ION-we will arrange for follow-up after this hospitalization
Duonebs
Pulmicort nebulizers
Mucolytic's continue
Decadron 4 mg IV every 8 hours-no change today-possibly changed to prednisone 40-60 mg tomorrow with slow taper
Antitussives
Incentive spirometry
Acapella
Consider vest if difficulties mobilizing secretions
Consider chest physiotherapy if difficulties mobilizing secretions
No obvious signs of infection
Observe off antibiotics
Monitor blood sugars
Insulin supplementation as needed
Marijuana smoking cessation counseling ongoing-she states she will quit
DVT prophylaxis-on Lovenox
GI prophylaxis-on pantoprazole
Increase activity
Reviewed with nursing, respiratory therapy, and primary team.
Outpatient pulmonary follow-up recommended-needs repeat CT chest ION in 3 months, PFTs, yearly Lung cancer screening, etc.
Diagnostic data:
Chest x-ray 12/03/2023-NAD
CT chest 12/04/23-negative for pulmonary embolism, upper abdomen, right side rectus hematoma, severe changes of emphysema, spiculated density medial right upper lobe, several small well-defined nodules are also seen in the lung, largest measuring 5 mm
in the right upper lobe and 3 mm in the left upper lobe
Subjective Data
-
Date of Service:
Date of Service: December 06, 2023
Chief Complaint: Pulmonary Follow Up and Dyspnea Follow Up
Subjective:
Still wheezing, pain improved, some dyspnea on exertion, no chest pain or abdominal pain
Review of Systems
General: Other (Per HPI)
Objective Data
Data Reviewed
Vital Signs / I&O:
Vital Signs
Temp Pulse Resp BP Pulse Ox
97.9 F 85 16 149/77 92
12/06/23 07:55 12/06/23 08:01 12/06/23 08:01 12/06/23 07:55 12/06/23 08:01
Intake and Output
12/05/23 12/06/23 12/07/23
06:59 06:59 06:59
Intake Total 840 / 840 480 / 480
Balance 840 / 840 480 / 480
SaO2: 92
Nasal Cannula flow liters per minute: 2
Physical Exam
General: Respiratory Distress (n) and Comfortable
HEENT: Normocephalic, Anicteric and Moist Mucous Membranes
Cardiovascular: Regular Rhythm
Respiratory: Clear ( diminished breath sounds and prolonged expiratory time), Wheeze ( diffuse expiratory), Crackles (n), Rhonchi, Non-Labored Respirations, Accessory Resp Muscle Use (n) and Stridor (n)
GI: Soft and Non Distended
Neurology: Awake and No Motor Deficits
Skin: Good Color, Cyanosis (n) and Jaundice
Labs/Micro/Reports
Lab Data
12/06/23 04:43
12/06/23 04:43
--- NOTE | 2023-12-06 12:27 | W.PN.HOSP.TC ---
Today's Communication/Plan
-
Monitor vital signs and see plan
Still on oxygen, wean oxygen as tolerated
Continue with Decadron, DuoNebs
Pain control
Assessment / Plan
Assessment / Plan
General: Comfortable,mild dyspnea
HEENT: Anicteric, Moist mucous membranes and Oxygen (Nasal Cannula)
Respiratory: Wheezes
Cardiac: S1/S2 and Regular Rhythm
GI: Soft and Non Tender
Musculoskeletal: No Edema
Neuro: Awake, Alert, Oriented and Nonfocal/grossly intact
Acute Hypoxic Respiratory Insufficiency secondary to Acute COPD Exacerbation
Pulmonary following
Patient COPD is not controlled, has been using rescue Hailer frequently
On Trelegy at home
Continue with IV Decadron, budesonide and DuoNebs
-Continue supplemental oxygen
-cwMucinex and Tessalon Perles
-Continue roflumilast as prior to admission
CT chest without PE, did show severe emphysema. Also showed pulmonary nodule. Right-sided rectus hematoma
Wean O2 as tolerated
Acute right-sided rectus hematoma likely secondary to persistent cough
Monitor
Ice application
Pain control
monitor hgb
elevated BP
no prior hx
could be 2/2 pain
hydralazine prn
mild hyponatremia
monitor
Right sided pleuritic chest pain
CT ordered by pulmonary
reports allergy to contrast; prep ordered
lidocaine patch for pain
DVT proph: SCD's
Code Status: Full Code
I spent a total of 51 minutes with the patient or on the floor. More than 50% of this time involved counseling and coordination of care.
Anticipated Discharge: 24 - 48 hours
Subjective/Interval History
-
Date of Service: December 06, 2023
Pain is slowly improving
Objective Data
-
Labs:
Laboratory Results
12/06/23
04:43
WBC 14.3 H
Hgb 12.6
Hct 40.0
Plt Count 214
Sodium 137
Potassium 4.9
Chloride 97 L
Carbon Dioxide 35 H
BUN 26 H
Creatinine 0.7
Glucose 130 H
Calcium 9.1
Vital Signs:
Vital Signs
Temp Pulse Resp BP Pulse Ox
97.9 F 84 16 149/77 92
12/06/23 07:55 12/06/23 11:13 12/06/23 11:13 12/06/23 07:55 12/06/23 09:29
I&O
12/05/23 12/06/23 12/07/23
06:59 06:59 06:59
Intake Total 840 / 840 480 / 480
Balance 840 / 840 480 / 480
[2023-12-06 15:35] VITALS: BP 135/71
[2023-12-06 15:52] VITALS: O2SAT 77; O2SAT 90
--- NOTE | 2023-12-06 16:00 | CM ---
MICHA checked in with Felicita again today re: advance directive. She advised that she plans to complete the Advance Directive at home with her so they can talk through their decisions together. Respiratory completed assessment and may need
home O2 at discharge.
Plan: Discharge to home with possible need for home O2
--- NOTE | 2023-12-06 16:10 | CM ---
I checked in with Felicita again today re: Advance Directive. She is going to complete it at home with her so they can discuss their decisions and have good understanding of each other's goals of care.
Plan: Discharge to home; watch for home O2 needs.
[2023-12-06 23:09] VITALS: BP 144/73
[2023-12-07] MEDS: DECADRON 4 MG IV ×3 (02:13→18:02)
[2023-12-07] MEDS: FLUSH (NSS) 2 FLUSH IV (02:14)
[2023-12-07] MEDS: DUONEB 3 ML INH ×4 (07:26→19:35)
[2023-12-07] MEDS: PULMICORT 0.5 MG INH ×2 (07:26→19:35)
[2023-12-07 07:55] VITALS: BP 158/81
[2023-12-07 07:59] LABS: % Basophils 0.5 % (0-2); % Immature Granulocytes 5.4 % (0-0.5); % Monocytes 6.4 % (1.7-9.3); % Neutrophils 81.7 % (42.2-75.2); Absolute Basophils 0.1 10^3/uL (0-0.2); Absolute Immature Granulocytes 0.5 10^3/uL (0-0.05); Absolute Lymphocytes 0.6 10^3/uL (1.2-3.4); Absolute Monocytes 0.6 10^3/uL (0.1-0.6); Absolute Neutrophils 7.9 10^3/uL (1.4-6.5); Hematocrit 42.5 % (37.0-47.0); Hemoglobin 13.4 g/dL (12.0-16.0); Mean Corp Hgb Conc. 31.5 g/dL (33.0-37.0); Mean Corpuscular Hgb 28.4 pg (27.0-31.0); Mean Platelet Volume 9.9 fL (7.4-10.4); Nucleated Red Blood Cells % 0 %; Platelet Count 189 10^3/uL (130-400); Red Blood Cell Count 4.72 10^6/uL (4.20-5.40); Red Cell Dist. Width 13.8 % (11.5-14.5); White Blood Cell Count 9.7 10^3/uL (4.8-10.8)
[2023-12-07 08:50] LABS: Blood Urea Nitrogen 26 mg/dl (7-17); Calcium 9.2 mg/dl (8.4-10.2); Carbon Dioxide 36 mmol/L (22-30); Chloride 97 mmol/L (98-107); Estimated Creatinine Clearance 82 ml/min; Glucose 105 mg/dl (70-99); Potassium 5.1 mmol/L (3.5-5.1); Sodium 136 mmol/L (135-145); eGFR > 60.00
[2023-12-07] MEDS: MUCINEX 600 MG PO ×2 (09:01→19:55)
[2023-12-07] MEDS: NSS (PRESERVATIVE FREE) 10 ML IV (09:01)
[2023-12-07] MEDS: DALIRESP 500 MCG PO (09:01)
[2023-12-07] MEDS: LIDOCAINE 4% PATCH TOPICAL (09:01)
[2023-12-07] MEDS: TESSALON PERLES 200 MG PO ×3 (09:01→21:00)
[2023-12-07] MEDS: PROTONIX IV 40 MG IV (09:02)
[2023-12-07] MEDS: FLUSH (NSS) 1 FLUSH IV ×4 (09:02→18:03)
--- NOTE | 2023-12-07 09:21 | W.PN.PUL.V3 ---
Today's Communication / Plan
-
No change in steroids
Continue nebulizers
Increase activity
Wean FiO2
Assess discharge supplemental oxygen needs-ordered rest and exercise oximetry on room air
Assessment
-
68-year-old female with a history of COPD maintained on Trelegy not on home oxygen with long smoking history quit 5 years ago, 'still smoking pot' who presented with COPD exacerbation-pulmonary consulted for COPD exacerbation and pleuritic chest
pain 12/04/2023.
COPD-suspect Gold stage III with acute exacerbation
Right-sided pleuritic chest pain-CT chest -right rectus hematoma
Right upper lobe pulmonary nodule as well as other pulmonary nodules
Right abdominal rectus sheath hematoma
Mild hyponatremia
Hyperglycemia
Conditions present prior to admission:
COPD.
Former [id number]-[id number]-year quit 5 years ago.
Marijuana smoker.
Solitary kidney.
Nephrectomy.
Tonsillectomy.
Plan
Respiratory status improving but continues with significant expiratory wheezing
Supplemental oxygen as needed-attempt to wean
Assess discharge supplemental oxygen needs closer to time of discharge-the patient does not have home oxygen
CT chest 12/04/23-negative for pulmonary embolism, upper abdomen, right side rectus hematoma, severe changes of emphysema, spiculated density medial right upper lobe, several small well-defined nodules are also seen in the lung, largest measuring 5 mm
in the right upper lobe and 3 mm in the left upper lobe
Analgesia per primary service-overall pain has improved-told patient to decrease her Dilaudid use if possible and monitor for constipation
Will need a CT chest at a minimum in 3 months -CT chest ION-we will arrange for follow-up after this hospitalization
Duonebs
Pulmicort nebulizers
Mucolytic's continue
Decadron 4 mg IV every 8 hours-once again recommend no change today-hopefully the patient can be changed to to prednisone 40-60 mg tomorrow with slow taper
Antitussives
Incentive spirometry
Acapella
We would consider vest therapy if she has difficulties mobilizing secretions
No obvious signs of infection
Continue to observe off antibiotics
Follow blood sugars
Insulin supplementation as needed
Marijuana smoking cessation counseling ongoing-she states she will quit
DVT prophylaxis-on Lovenox
GI prophylaxis-on pantoprazole
Increase activity
Reviewed with nursing, respiratory therapy, and primary team.
Outpatient pulmonary follow-up recommended-needs repeat CT chest ION in 3 months, PFTs, yearly Lung cancer screening, etc.
Diagnostic data:
Chest x-ray 12/03/2023-NAD
CT chest 12/04/23-negative for pulmonary embolism, upper abdomen, right side rectus hematoma, severe changes of emphysema, spiculated density medial right upper lobe, several small well-defined nodules are also seen in the lung, largest measuring 5 mm
in the right upper lobe and 3 mm in the left upper lobe
Subjective Data
-
Date of Service:
Date of Service: December 07, 2023
Chief Complaint: Pulmonary Follow Up and Dyspnea Follow Up
Subjective:
Still with significant wheezing, pain better controlled, ecchymosis continues from rectus sheath hematoma, no productive cough, no increased abdominal pain
Review of Systems
General: Other (Per HPI)
Objective Data
Data Reviewed
Vital Signs / I&O:
Vital Signs
Temp Pulse Resp BP Pulse Ox
97.9 F 88 18 158/81 96
12/07/23 07:55 12/07/23 07:55 12/07/23 07:55 12/07/23 07:55 12/07/23 08:53
Intake and Output
12/06/23 12/07/23 12/08/23
06:59 06:59 06:59
Intake Total 480 / 480 1080 / 1080
Balance 480 / 480 1080 / 1080
SaO2: 96
Nasal Cannula flow liters per minute: 2
Physical Exam
General: Respiratory Distress (n) and Comfortable
HEENT: Normocephalic, Anicteric and Moist Mucous Membranes
Cardiovascular: Regular Rhythm
Respiratory: Clear ( diminished breath sounds and prolonged expiratory time), Wheeze ( diffuse expiratory), Crackles (n), Rhonchi, Non-Labored Respirations, Accessory Resp Muscle Use (n) and Stridor (n)
GI: Soft and Non Distended
Neurology: Awake and No Motor Deficits
Skin: Good Color, Cyanosis (n) and Jaundice
Labs/Micro/Reports
Lab Data
12/07/23 06:58
12/07/23 06:58
[2023-12-07 11:07] VITALS: O2SAT 85; O2SAT 94
--- NOTE | 2023-12-07 12:47 | W.PN.HOSP.TC ---
Addendum entered and electronically signed by Jamey Hernandes MD 12/07/23 15:37:
Patient is in need of oxygen at 2 liters/minute via nasal cannula continuously due to pulse oximetry of 85% on room air at rest. Oxygen will help to improve hypoxemia. Patient is mobile within the home. DuoNeb therapy has been tried and is
ineffective in treating hypoxemia related symptoms. Oxygen is needed to improve symptoms.
Original Note:
Today's Communication/Plan
-
Monitor vital signs and see plan
Still with wheezing, no change in steroids
Check home O2 evaluation
Pulmonary following
Monitor hemoglobin
Pain control
Assessment / Plan
Assessment / Plan
General: Comfortable,mild dyspnea
HEENT: Anicteric, Moist mucous membranes and Oxygen (Nasal Cannula)
Respiratory: Wheezes
Cardiac: S1/S2 and Regular Rhythm
GI: Soft and Non Tender
Musculoskeletal: No Edema
Neuro: Awake, Alert, Oriented and Nonfocal/grossly intact
Acute Hypoxic Respiratory Insufficiency secondary to Acute COPD Exacerbation
Pulmonary following
Patient COPD is not controlled, has been using rescue inhaler frequently
On Trelegy at home
Continue with IV Decadron, budesonide and DuoNebs
-Continue supplemental oxygen
-cw Mucinex and Tessalon Perles
-Continue roflumilast as prior to admission
CT chest without PE, did show severe emphysema. Also showed pulmonary nodule. Right-sided rectus hematoma
Wean O2 as tolerated; home o2 eval
Acute right-sided rectus hematoma likely secondary to persistent cough
Monitor
Ice application
Pain control
monitor hgb
elevated BP
no prior hx
could be 2/2 pain
hydralazine prn
mild hyponatremia
monitor
Right sided pleuritic chest pain
CT ordered by pulmonary
reports allergy to contrast; prep ordered
lidocaine patch for pain
DVT proph: SCD's
Code Status: Full Code
I spent a total of 51 minutes with the patient or on the floor. More than 50% of this time involved counseling and coordination of care.
Anticipated Discharge: 24 - 48 hours
Subjective/Interval History
-
Date of Service: December 07, 2023
Denies chest pain
Objective Data
-
Labs:
Laboratory Results
12/07/23
06:58
WBC 9.7
Hgb 13.4
Hct 42.5
Plt Count 189
Sodium 136
Potassium 5.1
Chloride 97 L
Carbon Dioxide 36 H
BUN 26 H
Creatinine 0.6
Glucose 105 H
Calcium 9.2
Vital Signs:
Vital Signs
Temp Pulse Resp BP Pulse Ox
97.9 F 102 222 158/81 94
12/07/23 07:55 12/07/23 11:03 12/07/23 11:03 12/07/23 07:55 12/07/23 11:07
I&O
12/06/23 12/07/23 12/08/23
06:59 06:59 06:59
Intake Total 480 / 480 1080 / 1080
Balance 480 / 480 1080 / 1080
[2023-12-07 15:00] VITALS: BP 166/85
[2023-12-07] MEDS: DILAUDID 0.5 MG IV ×2 (15:53→21:05)
--- NOTE | 2023-12-07 15:59 | CM ---
Felicita was evaluated for home O2 and qualifies for same. Order received from Dr. Hernandes and paperwork compiled for [facility] to be sent at discharge since date is not yet known.
Plan: Discharge to home with Home O2 from [facility]. Felicita plans to complete Advance Directive at home with her .
PCP: Erica Arora
--- NOTE | 2023-12-07 16:03 | PTCARENOTE ---
Pt AAO x3, MOONEY well, ambulatory in room/to BR, og well. VSS. Maintained on nc 2 lpm- pulse ox currently 95%, pt with (+) BLISS on exertion. Abd soft, rounded, og PO well. Voids in BR without difficulty. Pt with large ecchymotic areas on Rt
upper abd/Rt side; c/o discomfort at sites; Dilaudid 0.5 mg IV given x1. Resting in bed at present. Will continue to monitor.
[2023-12-07 23:24] VITALS: BP 127/71
[2023-12-08] MEDS: DECADRON 4 MG IV ×3 (02:40→17:24)
[2023-12-08] MEDS: DILAUDID 0.5 MG IV ×2 (02:44→13:57)
[2023-12-08] MEDS: PULMICORT 0.5 MG INH ×2 (06:06→17:46)
[2023-12-08] MEDS: DUONEB 3 ML INH ×3 (06:06→17:46)
[2023-12-08 07:20] VITALS: BP 167/87
[2023-12-08 07:48] LABS: % Basophils 0.4 % (0-2); % Immature Granulocytes 4.2 % (0-0.5); % Lymphocytes 5.9 % (20.5-51.1); % Neutrophils 79.5 % (42.2-75.2); Absolute Immature Granulocytes 0.4 10^3/uL (0-0.05); Absolute Lymphocytes 0.6 10^3/uL (1.2-3.4); Absolute Neutrophils 7.7 10^3/uL (1.4-6.5); Hematocrit 44.8 % (37.0-47.0); Hemoglobin 13.9 g/dL (12.0-16.0); Mean Corpuscular Hgb 28.4 pg (27.0-31.0); Mean Corpuscular Volume 91.6 fL (81.0-99.0); Mean Platelet Volume 10.7 fL (7.4-10.4); Nucleated Red Blood Cells % 0 %; Platelet Count 161 10^3/uL (130-400); Red Blood Cell Count 4.89 10^6/uL (4.20-5.40); White Blood Cell Count 9.7 10^3/uL (4.8-10.8)
[2023-12-08 08:08] LABS: Blood Urea Nitrogen 27 mg/dl (7-17); Calcium 9.3 mg/dl (8.4-10.2); Carbon Dioxide 31 mmol/L (22-30); Chloride 98 mmol/L (98-107); Estimated Creatinine Clearance 82 ml/min; Glucose 115 mg/dl (70-99); Potassium 5.1 mmol/L (3.5-5.1); Sodium 135 mmol/L (135-145); eGFR > 60.00
[2023-12-08] MEDS: LIDOCAINE 4% PATCH TOPICAL (08:19)
[2023-12-08 08:20] VITALS: BP 167/87
[2023-12-08] MEDS: TESSALON PERLES 200 MG PO ×3 (08:21→21:41)
[2023-12-08] MEDS: DALIRESP 500 MCG PO (08:22)
[2023-12-08] MEDS: MUCINEX 600 MG PO ×2 (08:22→19:47)
[2023-12-08] MEDS: PROTONIX IV 40 MG IV (08:22)
[2023-12-08] MEDS: NSS (PRESERVATIVE FREE) 10 ML IV (08:22)
[2023-12-08 09:40] VITALS: BP 154/78
--- NOTE | 2023-12-08 10:03 | W.PN.PUL3 ---
Today's Communication / Plan
-
Start weaning down steroids tonight to decadron 4mg IV q12hr
Start Mucomyst with vest therapy to help mobilize secretions
Continue nebulizers
Increase activity as tolerated
Wean O2 flow rate; goal SpO2 >90-94%; check walking pulse ox before discharge
Assessment
-
68-year-old female with a history of COPD maintained on Trelegy not on home oxygen with long smoking history quit 5 years ago, 'still smoking pot' who presented with COPD exacerbation-pulmonary consulted for COPD exacerbation and pleuritic chest
pain 12/04/2023.
Impression:
COPD-suspect Gold stage III with acute exacerbation
Right-sided pleuritic chest pain- due to right-sided rectus hematoma
Right upper lobe pulmonary nodule as well as other pulmonary nodules
Right abdominal rectus sheath hematoma
Mild hyponatremia - resolved
Hyperglycemia
Conditions present prior to admission:
COPD.
Former [id number]-year quit 5 years ago.
Marijuana smoker.
Solitary kidney.
Nephrectomy.
Tonsillectomy.
Plan
Respiratory status improving but continues with significant expiratory wheezing and difficulty expectorating her phlegm
Supplemental oxygen as needed-attempt to wean
Check home O2 assessment prior to discharge-the patient does not have home oxygen
CT chest 12/04/23-negative for pulmonary embolism, upper abdomen, right side rectus hematoma, severe changes of emphysema, spiculated density medial right upper lobe, several small well-defined nodules are also seen in the lung, largest measuring 5 mm
in the right upper lobe and 3 mm in the left upper lobe
Analgesia per primary service-overall pain has improved-told patient to decrease her Dilaudid use if possible and monitor for constipation
Will need a CT chest at a minimum in 3 months -CT chest ION-we will arrange for follow-up after this hospitalization
Duonebs QID
Pulmicort BID
Continue Mucolytics with mucinex
Start nebulized mucomyst with vest therpay for chest PT as she is having a wet sounding cough and difficulty expectorating, jc with her R-sided rectus sheath hematoma
Decadron 4 mg IV every 8 hourrs --> wean down to 4mg IV q12hr tonight
Antitussives prn
Incentive spirometry
Acapella
No obvious signs of infection
Continue to observe off antibiotics
Follow blood sugars - goal >100 and <180
Insulin supplementation as needed
Marijuana smoking cessation counseling ongoing-she states she will quit
DVT prophylaxis- start HSQ as her Hb has been stable
GI prophylaxis-no indication
Increase activity as tolerated
Reviewed with nursing, respiratory therapy, and primary team.
Outpatient pulmonary follow-up recommended-needs repeat CT chest ION in 3 months, PFTs, yearly Lung cancer screening, etc.
Total time spent today was 35 minutes for this encounter. Time includes reviewing laboratory test/imaging results, reviewing pertinent medical records, obtaining and reviewing medical history, performing an appropriate exam, ordering medications,
tests and procedures. Time also includes documentation of this encounter, coordinating patient care and communicating with other healthcare professionals. Total time does not include separately billed tests performed on this date of service.
Diagnostic data:
Chest x-ray 12/03/2023-NAD
CT chest 12/04/23-negative for pulmonary embolism, upper abdomen, right side rectus hematoma, severe changes of emphysema, spiculated density medial right upper lobe, several small well-defined nodules are also seen in the lung, largest measuring 5 mm
in the right upper lobe and 3 mm in the left upper lobe
Subjective Data
-
Date of Service:
Date of Service: December 08, 2023
Chief Complaint: Pulmonary Follow Up and Dyspnea Follow Up
Subjective:
Pt seen and evaluated at the bedside this afternoon. She still feels SOB, and has a wet cough with great difficulty bringing up her secretions. She feels that this is her biggest issue. She just started using the flutter valve today. She is on
2L/min NC, and feels ok with exertion while wearing it, but as soon as she comes off the O2 she gets winded. She does not use O2 at home, of note. She denies chest pain, PERKINS, abd pain, N/V/f/c.
Review of Systems
General: Other (Negative unless mentioned above)
Objective Data
Data Reviewed
Vital Signs / I&O / Oxygen:
Vital Signs
Temp Pulse Resp BP Pulse Ox
98.5 F 98 16 154/78 97
12/08/23 07:20 12/08/23 09:40 12/08/23 07:20 12/08/23 09:40 12/08/23 07:20
Intake and Output
12/07/23 12/08/23 12/09/23
06:59 06:59 06:59
Intake Total 1080 / 1080 1860 / 1860
Balance 1080 / 1080 1860 / 1860
SaO2 97
Nasal Cannula flow liters per 2
minute
Physical Exam
General: Respiratory Distress (n) and Comfortable
HEENT: Normocephalic, Anicteric and Moist Mucous Membranes
Cardiovascular: S1-S2 and Peripheral Edema (negative)
Respiratory: Clear ( diminished breath sounds and prolonged expiratory time), Wheeze ( diffuse expiratory (upper lobes > lower/middle lobes)), Crackles (heard anteriorly (R>L)), Rhonchi, Non-Labored Respirations, Accessory Resp Muscle Use (n) and
Stridor (n)
GI: Soft, Non Distended, Non Tender and Normal Bowel Sounds
Neurology: AO x 3 and Tremors (negative)
Skin: Warm, Dry and Cyanosis (n)
Labs/Micro/Reports
Lab Data
12/08/23 06:06
12/08/23 06:06
--- NOTE | 2023-12-08 12:57 | W.PN.HOSP.TC ---
Today's Communication/Plan
-
Monitor vital signs and see plan
No changes in steroids
Still with significant wheezing
Will need home O2 on discharge
Pulmonary to see today
Monitor hemoglobin
Assessment / Plan
Assessment / Plan
General: Comfortable,mild dyspnea
HEENT: Anicteric, Moist mucous membranes and Oxygen (Nasal Cannula)
Respiratory: Wheezes
Cardiac: S1/S2 and Regular Rhythm
GI: Soft and Non Tender
Musculoskeletal: No Edema
Neuro: Awake, Alert, Oriented and Nonfocal/grossly intact
Acute Hypoxic Respiratory Insufficiency secondary to Acute COPD Exacerbation
Pulmonary following
Patient COPD is not controlled, has been using rescue inhaler frequently
On Trelegy at home
Continue with IV Decadron, budesonide and Duo-nebs
-Continue supplemental oxygen
-cw Mucinex and Tessalon Perles
-Continue roflumilast as prior to admission
CT chest without PE, did show severe emphysema. Also showed pulmonary nodule. Right-sided rectus hematoma
Wean O2 as tolerated; home o2 eval noted. Requires 2 L nasal cannula
Acute right-sided rectus hematoma likely secondary to persistent cough
Monitor
Ice application
Pain control
monitor hgb
elevated BP
no prior hx
could be 2/2 pain
hydralazine prn
mild hyponatremia
monitor
Right sided pleuritic chest pain
CT ordered by pulmonary
reports allergy to contrast; prep ordered
lidocaine patch for pain
DVT proph: SCD's
Code Status: Full Code
Anticipated Discharge: 24 - 48 hours
Subjective/Interval History
-
Date of Service: December 08, 2023
Still with wheeze
Objective Data
-
Labs:
Laboratory Results
12/08/23
06:06
WBC 9.7
Hgb 13.9
Hct 44.8
Plt Count 161
Sodium 135
Potassium 5.1
Chloride 98
Carbon Dioxide 31 H
BUN 27 H
Creatinine 0.5 L
Glucose 115 H
Calcium 9.3
Vital Signs:
Vital Signs
Temp Pulse Resp BP Pulse Ox
98.5 F 77 18 154/78 96
12/08/23 07:20 12/08/23 10:06 12/08/23 10:06 12/08/23 09:40 12/08/23 10:27
I&O
12/07/23 12/08/23 12/09/23
06:59 06:59 06:59
Intake Total Adviqo / Adviqo 1859
Balance Adviqo / 1080 1859
[2023-12-08] MEDS: DUONEB INH ×2 (14:17→14:19)
[2023-12-08 15:39] VITALS: BP 151/72
[2023-12-08] MEDS: MUCOMYST 10% INH (19:20)
[2023-12-08 19:30] VITALS: BP 141/68
[2023-12-08 23:15] VITALS: BP 144/79
[2023-12-09] MEDS: DILAUDID 0.5 MG IV ×3 (00:30→22:06)
[2023-12-09 03:45] VITALS: BP 138/75
[2023-12-09 07:12] VITALS: BP 148/68
[2023-12-09] MEDS: MUCOMYST 10% 4 ML INH ×4 (07:24→19:31)
[2023-12-09] MEDS: TESSALON PERLES 200 MG PO ×3 (07:24→22:02)
[2023-12-09] MEDS: MUCINEX 600 MG PO ×2 (07:24→20:07)
[2023-12-09] MEDS: PULMICORT 0.5 MG INH ×2 (07:24→19:31)
[2023-12-09] MEDS: DALIRESP 500 MCG PO (07:24)
[2023-12-09] MEDS: DUONEB 3 ML INH ×4 (07:24→19:31)
[2023-12-09] MEDS: LIDOCAINE 4% PATCH TOPICAL (07:25)
[2023-12-09] MEDS: DECADRON 4 MG IV ×2 (07:25→20:10)
[2023-12-09] MEDS: PROTONIX IV 40 MG IV (07:25)
[2023-12-09] MEDS: NSS (PRESERVATIVE FREE) 10 ML IV (07:25)
[2023-12-09 08:05] LABS: % Basophils 0.5 % (0-2); % Immature Granulocytes 4.2 % (0-0.5); % Lymphocytes 8.8 % (20.5-51.1); % Monocytes 10.1 % (1.7-9.3); % Neutrophils 76.4 % (42.2-75.2); Absolute Basophils 0.1 10^3/uL (0-0.2); Absolute Immature Granulocytes 0.4 10^3/uL (0-0.05); Absolute Lymphocytes 0.8 10^3/uL (1.2-3.4); Absolute Neutrophils 7.2 10^3/uL (1.4-6.5); Hematocrit 45.9 % (37.0-47.0); Hemoglobin 14.2 g/dL (12.0-16.0); Mean Corp Hgb Conc. 30.9 g/dL (33.0-37.0); Mean Corpuscular Hgb 28.3 pg (27.0-31.0); Mean Corpuscular Volume 91.4 fL (81.0-99.0); Nucleated Red Blood Cells % 0 %; Platelet Count 186 10^3/uL (130-400); Red Blood Cell Count 5.02 10^6/uL (4.20-5.40); Red Cell Dist. Width 13.9 % (11.5-14.5); White Blood Cell Count 9.4 10^3/uL (4.8-10.8)
[2023-12-09 08:18] LABS: Blood Urea Nitrogen 27 mg/dl (7-17); Carbon Dioxide 38 mmol/L (22-30); Chloride 95 mmol/L (98-107); Estimated Creatinine Clearance 82 ml/min; Glucose 83 mg/dl (70-99); Potassium 5.1 mmol/L (3.5-5.1); Sodium 136 mmol/L (135-145); eGFR > 60.00
--- NOTE | 2023-12-09 09:45 | W.PN.PUL3 ---
Today's Communication / Plan
-
Continue systemic steroids and can likely transition to PO prednisone over the next 24-48 hours assuming she continues to clinically improve
Continue Mucomyst with vest therapy to help mobilize secretions - she seems to be benefiting from this and feels less SOB since this was initiated on 12/07
Continue nebulizers
Increase activity as tolerated
Wean O2 flow rate; goal SpO2 >90-94%; check walking pulse ox before discharge
Assessment
-
68-year-old female with a history of COPD maintained on Trelegy not on home oxygen with long smoking history quit 5 years ago, 'still smoking pot' who presented with COPD exacerbation-pulmonary consulted for COPD exacerbation and pleuritic chest
pain 12/04/2023.
Impression:
COPD-suspect Gold stage III with acute exacerbation
Right-sided pleuritic chest pain- due to right-sided rectus hematoma
Right upper lobe pulmonary nodule as well as other pulmonary nodules
Right abdominal rectus sheath hematoma
Mild hyponatremia - resolved
Hyperglycemia
Conditions present prior to admission:
COPD.
Former [id number]-year quit 5 years ago.
Marijuana smoker.
Solitary kidney.
Nephrectomy.
Tonsillectomy.
Plan
Respiratory status has improved today with absent wheezing and improved phlegm expectoration; I started Mucomyst + vest therapy on 12/07 and she seems to be benefiting from this with improved SOB + mucus clearing
Continue to wean down on supplemental oxygen to maintain SpO2 >88%
Check home O2 assessment prior to discharge-the patient does not have home oxygen
CT chest 12/04/23-negative for pulmonary embolism, upper abdomen, right side rectus hematoma, severe changes of emphysema, spiculated density medial right upper lobe, several small well-defined nodules are also seen in the lung, largest measuring 5 mm
in the right upper lobe and 3 mm in the left upper lobe
Analgesia per primary service-overall pain has improved-told patient to decrease her Dilaudid use if possible and monitor for constipation
Will need a CT chest at a minimum in 3 months -CT chest ION-we will arrange for follow-up after this hospitalization
Duonebs QID
Pulmicort BID
Continue Mucolytics with mucinex
On 12/07 I started nebulized Mucomyst with vest therapy for chest PT as she is having a wet sounding cough and difficulty expectorating, jc with her R-sided rectus sheath hematoma
Decadron 4 mg IV every 8 hours --> weaned down on 12/07 to 4mg IV q12hr --> can likely transition to PO prednisone tomorrow or the next day depending on her clinical course
Antitussives prn
Incentive spirometry
Acapella
No obvious signs of infection
Continue to observe off antibiotics
Follow blood sugars - goal >100 and <180
Insulin supplementation as needed
Marijuana smoking cessation counseling ongoing-she states she will quit
DVT prophylaxis- start HSQ 5000 units q12hr as her Hb has been stable
GI prophylaxis-no indication
Increase activity as tolerated
Reviewed with nursing, respiratory therapy, and primary team.
Outpatient pulmonary follow-up recommended-needs repeat CT chest ION in 3 months, PFTs, yearly Lung cancer screening, etc.
Total time spent today was 35 minutes for this encounter. Time includes reviewing laboratory test/imaging results, reviewing pertinent medical records, obtaining and reviewing medical history, performing an appropriate exam, ordering medications,
tests and procedures. Time also includes documentation of this encounter, coordinating patient care and communicating with other healthcare professionals. Total time does not include separately billed tests performed on this date of service.
Diagnostic data:
Chest x-ray 12/03/2023-NAD
CT chest 12/04/23-negative for pulmonary embolism, upper abdomen, right side rectus hematoma, severe changes of emphysema, spiculated density medial right upper lobe, several small well-defined nodules are also seen in the lung, largest measuring 5 mm
in the right upper lobe and 3 mm in the left upper lobe
Subjective Data
-
Date of Service:
Date of Service: December 09, 2023
Chief Complaint: Pulmonary Follow Up and Dyspnea Follow Up
Subjective:
Patient seen and evaluated today at bedside. She feels much better today. She is currently on 2 L/min nasal cannula saturating 96%. She denies chest pain, headache, fevers or chills. Patient's , Bereket, at bedside and I answered all of
his questions.
Review of Systems
General: Other (Negative unless mentioned above)
Objective Data
Data Reviewed
Vital Signs / I&O / Oxygen:
Vital Signs
Temp Pulse Resp BP Pulse Ox
97.7 F 76 16 148/68 95
12/09/23 07:12 12/09/23 07:33 12/09/23 07:33 12/09/23 07:12 12/09/23 07:33
Intake and Output
12/08/23 12/09/23 12/10/23
06:59 06:59 06:59
Intake Total 1860 / 1860 720 / 720
Balance 1860 / 1860 720 / 720
SaO2 95
Nasal Cannula flow liters per 2
minute
Physical Exam
General: Respiratory Distress (n) and Comfortable
HEENT: Normocephalic, Anicteric and Moist Mucous Membranes
Cardiovascular: S1-S2 and Peripheral Edema (negative)
Respiratory: Wheeze (Negative), Crackles (Right hemithorax), Rhonchi (Right hemithorax), Non-Labored Respirations, Accessory Resp Muscle Use (n) and Stridor (n)
GI: Soft, Non Distended, Non Tender and Normal Bowel Sounds
Neurology: AO x 3 and Tremors (negative)
Skin: Warm, Dry and Cyanosis (n)
Labs/Micro/Reports
Lab Data
12/09/23 07:08
12/09/23 07:08
--- NOTE | 2023-12-09 10:32 | CM ---
Patient seen bedside, reports no concerns to CM. Per patient, she is not being discharged today. Patient is hopeful to wean off O2. CM will watch for home O2 assessment, will follow for all discharge planning needs.
Plan; home no needs, watch for home O2 needs.
--- NOTE | 2023-12-09 11:57 | W.PN.HOSP.TC ---
Today's Communication/Plan
-
Monitor vital signs and see plan
Slowly improving
Continue with current meds
Monitor hematoma
Assessment / Plan
Assessment / Plan
General: Comfortable,mild dyspnea
HEENT: Anicteric, Moist mucous membranes and Oxygen (Nasal Cannula)
Respiratory: Wheezes
Cardiac: S1/S2 and Regular Rhythm
GI: Soft and Non Tender
Musculoskeletal: No Edema
Neuro: Awake, Alert, Oriented and Nonfocal/grossly intact
Acute Hypoxic Respiratory Insufficiency secondary to Acute COPD Exacerbation
Pulmonary following
Patient COPD is not controlled, has been using rescue inhaler frequently
On Trelegy at home
Continue with IV Decadron, budesonide and Duo-nebs
-Continue supplemental oxygen
-cw Mucinex and Tessalon Perles
-Continue roflumilast as prior to admission
CT chest without PE, did show severe emphysema. Also showed pulmonary nodule. Right-sided rectus hematoma
Wean O2 as tolerated; home o2 eval noted. Requires 2 L nasal cannula
on mucomyst
Acute right-sided rectus hematoma likely secondary to persistent cough
Monitor
Ice application
Pain control
monitor hgb
elevated BP
no prior hx
could be 2/2 pain
hydralazine prn
mild hyponatremia
monitor
DVT proph: SCD's
Code Status: Full Code
Anticipated Discharge: 24 - 48 hours
Subjective/Interval History
-
Date of Service: December 09, 2023
denies nausea
Objective Data
-
Labs:
Laboratory Results
12/09/23
07:08
WBC 9.4
Hgb 14.2
Hct 45.9
Plt Count 186
Sodium 136
Potassium 5.1
Chloride 95 L
Carbon Dioxide 38 H
BUN 27 H
Creatinine 0.6
Glucose 83
Calcium 9.0
Vital Signs:
Vital Signs
Temp Pulse Resp BP Pulse Ox
97.7 F 88 16 148/68 95
12/09/23 07:12 12/09/23 11:06 12/09/23 11:06 12/09/23 07:12 12/09/23 11:06
I&O
12/08/23 12/09/23 12/10/23
06:59 06:59 06:59
Intake Total 1859 720 / 720
Balance 1859 720 / 720
--- NOTE | 2023-12-09 13:49 | CHAP ---
Ms. Mcdonald said she was doing fine, and thanked me for the visit.
[2023-12-09 15:56] VITALS: BP 136/60
[2023-12-09 23:55] VITALS: BP 137/65
[2023-12-10 06:41] LABS: % Basophils 0.4 % (0-2); % Immature Granulocytes 2.7 % (0-0.5); % Lymphocytes 6.2 % (20.5-51.1); % Monocytes 9.8 % (1.7-9.3); % Neutrophils 80.9 % (42.2-75.2); Absolute Immature Granulocytes 0.3 10^3/uL (0-0.05); Absolute Lymphocytes 0.7 10^3/uL (1.2-3.4); Absolute Monocytes 1.1 10^3/uL (0.1-0.6); Hematocrit 43.8 % (37.0-47.0); Hemoglobin 13.4 g/dL (12.0-16.0); Mean Corp Hgb Conc. 30.6 g/dL (33.0-37.0); Mean Corpuscular Volume 91.6 fL (81.0-99.0); Mean Platelet Volume 10.1 fL (7.4-10.4); Nucleated Red Blood Cells % 0 %; Platelet Count 177 10^3/uL (130-400); Red Blood Cell Count 4.78 10^6/uL (4.20-5.40); Red Cell Dist. Width 13.9 % (11.5-14.5); White Blood Cell Count 11.1 10^3/uL (4.8-10.8)
[2023-12-10 06:52] LABS: Blood Urea Nitrogen 31 mg/dl (7-17); Calcium 8.8 mg/dl (8.4-10.2); Carbon Dioxide 40 mmol/L (22-30); Chloride 98 mmol/L (98-107); Estimated Creatinine Clearance 82 ml/min; Glucose 101 mg/dl (70-99); Potassium 4.6 mmol/L (3.5-5.1); Sodium 138 mmol/L (135-145); eGFR > 60.00
[2023-12-10 07:00] VITALS: BP 137/71
[2023-12-10] MEDS: PULMICORT 0.5 MG INH ×2 (07:53→19:37)
[2023-12-10] MEDS: DUONEB 3 ML INH ×4 (07:53→19:38)
[2023-12-10] MEDS: MUCOMYST 10% 4 ML INH ×4 (07:53→19:38)
[2023-12-10] MEDS: DALIRESP 500 MCG PO (08:32)
[2023-12-10] MEDS: DECADRON 4 MG IV ×2 (08:32→20:23)
[2023-12-10] MEDS: NSS (PRESERVATIVE FREE) 10 ML IV (08:34)
[2023-12-10] MEDS: MUCINEX 600 MG PO ×2 (08:34→20:22)
[2023-12-10] MEDS: HEPARIN 5000 UNITS SC ×2 (08:34→20:22)
[2023-12-10] MEDS: PROTONIX IV 40 MG IV (08:35)
[2023-12-10] MEDS: TESSALON PERLES 200 MG PO ×3 (08:35→22:47)
[2023-12-10] MEDS: LIDOCAINE 4% PATCH TOPICAL (08:50)
--- NOTE | 2023-12-10 09:51 | W.PN.PUL.V3 ---
Today's Communication / Plan
-
. Wean steroids-changed to prednisone with slow taper.
Wean oxygen.
Assess discharge. Supplemental oxygen needs.
Outpatient pulmonary follow-up
Assessment
-
68-year-old female with a history of COPD maintained on Trelegy not on home oxygen with long smoking history quit 5 years ago, 'still smoking pot' who presented with COPD exacerbation-pulmonary consulted for COPD exacerbation and pleuritic chest
pain 12/04/2023.
Impression:
COPD-suspect Gold stage III with acute exacerbation
Right-sided pleuritic chest pain- due to right-sided rectus hematoma
Right upper lobe pulmonary nodule as well as other pulmonary nodules
Right abdominal rectus sheath hematoma
Mild hyponatremia - resolved
Hyperglycemia
Conditions present prior to admission:
COPD.
Former [id number]-year quit 5 years ago.
Marijuana smoker.
Solitary kidney.
Nephrectomy.
Tonsillectomy.
Plan
.
Respiratory status continues to improve-less wheezing, still on oxygen.
Wean FiO2.
Assess discharge. Supplemental oxygen needs.
Mucus clearing devices including vest therapy appear to be helping.
Aspiration precautions.
Continue nebulizers-dual nebs and Pulmicort.
Continue mucolytic's.
Decadron-taper to prednisone with slow taper.
Antitussives as needed.
CT chest 12/04/23-negative for pulmonary embolism, upper abdomen, right side rectus hematoma, severe changes of emphysema, spiculated density medial right upper lobe, several small well-defined nodules are also seen in the lung, largest measuring 5 mm
in the right upper lobe and 3 mm in the left upper lobe
Analgesia per primary service-overall pain has improved-told patient to decrease her Dilaudid use if possible and monitor for constipation
Will need a CT chest at a minimum in 3 months -CT chest ION-we will arrange for follow-up after this hospitalization
No obvious signs of infection
Continue to observe off antibiotics
Follow blood sugars - goal >100 and <180
Insulin supplementation as needed
Marijuana smoking cessation counseling ongoing-she states she will quit
DVT prophylaxis- start HSQ 5000 units q12hr as her Hb has been stable
GI prophylaxis-no indication
Increase activity as tolerated
Reviewed with primary team and nursing
Outpatient pulmonary follow-up recommended-needs repeat CT chest ION in 3 months, PFTs, yearly Lung cancer screening, etc.
Diagnostic data:
Chest x-ray 12/03/2023-NAD
CT chest 12/04/23-negative for pulmonary embolism, upper abdomen, right side rectus hematoma, severe changes of emphysema, spiculated density medial right upper lobe, several small well-defined nodules are also seen in the lung, largest measuring 5 mm
in the right upper lobe and 3 mm in the left upper lobe
Subjective Data
-
Date of Service:
Date of Service: December 10, 2023
Chief Complaint: Pulmonary Follow Up and Dyspnea Follow Up
Subjective:
feels better, less wheezing, still some dyspnea on exertion, still requires oxygen, abdominal pain, improved
Review of Systems
General: Other ( per HPI)
Objective Data
Data Reviewed
Vital Signs / I&O:
Vital Signs
Temp Pulse Resp BP Pulse Ox
98.0 F 75 20 137/71 95
12/10/23 07:00 12/10/23 07:55 12/10/23 07:55 12/10/23 07:00 12/10/23 07:55
Intake and Output
12/09/23 12/10/23 12/11/23
06:59 06:59 06:59
Intake Total 720 / 720 840 / 840
Balance 720 / 720 840 / 840
SaO2: 95
Nasal Cannula flow liters per minute: 2
Physical Exam
General: Respiratory Distress (n) and Comfortable
HEENT: Normocephalic, Anicteric and Moist Mucous Membranes
Cardiovascular: S1-S2 and Peripheral Edema (negative)
Respiratory: Wheeze (Negative), Crackles (Right hemithorax), Rhonchi (Right hemithorax), Non-Labored Respirations, Accessory Resp Muscle Use (n) and Stridor (n)
GI: Soft, Non Distended, Non Tender and Normal Bowel Sounds
Neurology: AO x 3 and Tremors (negative)
Skin: Warm, Dry and Cyanosis (n)
Labs/Micro/Reports
Lab Data
12/10/23 05:12
12/10/23 05:12
--- NOTE | 2023-12-10 11:21 | W.PN.HOSP.TC ---
Today's Communication/Plan
-
Monitor vital signs and see plan
Spoke with pulmonary, likely will transition to prednisone next 24 hours
Continue with IV Decadron, nebs
Pain control
Home O2 eval in a.m.
Assessment / Plan
Assessment / Plan
General: Comfortable,mild dyspnea
HEENT: Anicteric, Moist mucous membranes and Oxygen (Nasal Cannula)
Respiratory: mild Wheezes
Cardiac: S1/S2 and Regular Rhythm
GI: Soft and Non Tender
Musculoskeletal: No Edema
Neuro: Awake, Alert, Oriented and Nonfocal/grossly intact
Acute Hypoxic Respiratory Insufficiency secondary to Acute COPD Exacerbation
Pulmonary following
Patient COPD is not controlled, has been using rescue inhaler frequently
On Trelegy at home
Continue with IV Decadron, budesonide and Duo-nebs
-Continue supplemental oxygen
-cw Mucinex and Tessalon Perles
-Continue roflumilast as prior to admission
CT chest without PE, did show severe emphysema. Also showed pulmonary nodule. Right-sided rectus hematoma
Wean O2 as tolerated; home o2 eval noted. Requires 2 L nasal cannula. home o2 eval again in am
on mucomyst
Acute right-sided rectus hematoma likely secondary to persistent cough
Monitor
Ice application
Pain control
monitor hgb
elevated BP
no prior hx
could be 2/2 pain
hydralazine prn
mild hyponatremia
resolved; monitor
DVT proph: SCD's
Code Status: Full Code
Anticipated Discharge: Within 24 hours
Subjective/Interval History
-
Date of Service: December 10, 2023
denies nausea
Objective Data
-
Labs:
Laboratory Results
12/10/23
05:12
WBC 11.1 H
Hgb 13.4
Hct 43.8
Plt Count 177
Sodium 138
Potassium 4.6
Chloride 98
Carbon Dioxide 40 H
BUN 31 H
Creatinine 0.6
Glucose 101 H
Calcium 8.8
Vital Signs:
Vital Signs
Temp Pulse Resp BP Pulse Ox
98.0 F 75 20 137/71 95
12/10/23 07:00 12/10/23 07:55 12/10/23 07:55 12/10/23 07:00 12/10/23 09:51
I&O
12/09/23 12/10/23 12/11/23
06:59 06:59 06:59
Intake Total 720 / 720 840 / 840
Balance 720 / 720 840 / 840
--- NOTE | 2023-12-10 13:31 | CM ---
MICHA met with Felicita this AM. She is looking forward to discharge; home O2 eval done today and likely will need O2 at home. Repeat home O2 eval to be done in AM.
Advance Directive provided for completion at home with .
Plan: Discharge to home; will likely require O2. Will place order for home O2 once final home O2 eval is completed.
[2023-12-10 14:41] VITALS: BP 121/55
[2023-12-10] MEDS: DILAUDID 0.5 MG IV ×2 (16:32→22:47)
[2023-12-10 23:17] VITALS: BP 132/64
[2023-12-11] MEDS: DILAUDID 0.5 MG IV (03:36)
[2023-12-11 05:37] LABS: % Basophils 0.2 % (0-2); % Eosinophils 0.1 % (0-6); % Immature Granulocytes 2.3 % (0-0.5); % Neutrophils 84.4 % (42.2-75.2); Absolute Immature Granulocytes 0.2 10^3/uL (0-0.05); Absolute Lymphocytes 0.6 10^3/uL (1.2-3.4); Absolute Monocytes 0.7 10^3/uL (0.1-0.6); Absolute Neutrophils 8.8 10^3/uL (1.4-6.5); Hemoglobin 12.3 g/dL (12.0-16.0); Mean Corp Hgb Conc. 31.5 g/dL (33.0-37.0); Mean Corpuscular Hgb 28.4 pg (27.0-31.0); Mean Corpuscular Volume 90.1 fL (81.0-99.0); Mean Platelet Volume 10.2 fL (7.4-10.4); Nucleated Red Blood Cells % 0 %; Platelet Count 150 10^3/uL (130-400); Red Blood Cell Count 4.33 10^6/uL (4.20-5.40); Red Cell Dist. Width 13.9 % (11.5-14.5); White Blood Cell Count 10.5 10^3/uL (4.8-10.8)
[2023-12-11 06:04] LABS: Blood Urea Nitrogen 28 mg/dl (7-17); Calcium 8.6 mg/dl (8.4-10.2); Carbon Dioxide 37 mmol/L (22-30); Chloride 98 mmol/L (98-107); Estimated Creatinine Clearance 82 ml/min; Glucose 123 mg/dl (70-99); Potassium 5.1 mmol/L (3.5-5.1); Sodium 135 mmol/L (135-145); eGFR > 60.00
[2023-12-11 07:40] VITALS: BP 151/79
[2023-12-11] MEDS: MUCOMYST 10% 4 ML INH ×2 (08:19→11:28)
[2023-12-11] MEDS: DUONEB 3 ML INH ×2 (08:19→11:28)
[2023-12-11] MEDS: PULMICORT 0.5 MG INH (08:19)
[2023-12-11] MEDS: HEPARIN 5000 UNITS SC (09:00)
[2023-12-11] MEDS: TESSALON PERLES 200 MG PO (09:01)
[2023-12-11] MEDS: MUCINEX 600 MG PO (09:02)
[2023-12-11] MEDS: LIDOCAINE 4% PATCH 2 PATCH TOPICAL (09:02)
[2023-12-11] MEDS: PROTONIX 40 MG PO (09:02)
[2023-12-11] MEDS: DALIRESP 500 MCG PO (09:02)
[2023-12-11] MEDS: DELTASONE 50 MG PO (09:02)
--- NOTE | 2023-12-11 09:57 | W.PN.HOSP.TC ---
Today's Communication/Plan
-
Monitor vital signs and see plan
Continue with prednisone taper on discharge
Nebs
Needs oxygen on discharge
Discharge today
Time of discharge 38 minutes
Assessment / Plan
Assessment / Plan
General: Comfortable,mild dyspnea
HEENT: Anicteric, Moist mucous membranes and Oxygen (Nasal Cannula)
Respiratory: mild Wheezes
Cardiac: S1/S2 and Regular Rhythm
GI: Soft and Non Tender
Musculoskeletal: No Edema
Neuro: Awake, Alert, Oriented and Nonfocal/grossly intact
Acute Hypoxic Respiratory Insufficiency secondary to Acute COPD Exacerbation
Pulmonary following
Patient COPD is not controlled, has been using rescue inhaler frequently
On Trelegy at home
Change Decadron to prednisone. Will do taper on discharge. Spoke with pulmonary and will do nebulizers also at home., budesonide and Duo-nebs
-Continue supplemental oxygen
-cw Mucinex and Tessalon Perles
-Continue roflumilast as prior to admission
CT chest without PE, did show severe emphysema. Also showed pulmonary nodule. Right-sided rectus hematoma
Wean O2 as tolerated; home o2 eval noted. Requires 2 L nasal cannula. home o2 eval Patient is in need of oxygen on exertion due to pulse oximetry of 93% on room air at rest; 82% on room air with exertion.
Patient was placed on 2L O2 via nasal cannula with saturation of 92%. Oxygen will help to improve hypoxemia.
Patient is mobile within the home. Albuterol therapy has been discussed and is ineffective in treating hypoxemia-related symptoms.
Oxygen will improve the patient's symptoms.
on mucomyst
Acute right-sided rectus hematoma likely secondary to persistent cough
Monitor
Ice application
Pain control
monitor hgb
elevated BP
no prior hx
could be 2/2 pain
hydralazine prn
mild hyponatremia
resolved; monitor
DVT proph: SCD's
Code Status: Full Code
Anticipated Discharge: Today
Subjective/Interval History
-
Date of Service: December 11, 2023
denies pain
Objective Data
-
Labs:
Laboratory Results
12/11/23
04:51
WBC 10.5
Hgb 12.3
Hct 39.0
Plt Count 150
Sodium 135
Potassium 5.1
Chloride 98
Carbon Dioxide 37 H
BUN 28 H
Creatinine 0.6
Glucose 123 H
Calcium 8.6
Vital Signs:
Vital Signs
Temp Pulse Resp BP Pulse Ox
98 F 76 18 151/79 96
12/11/23 07:40 12/11/23 08:21 12/11/23 08:21 12/11/23 07:40 12/11/23 09:10
I&O
12/10/23 12/11/23 12/12/23
06:59 06:59 06:59
Intake Total 840 / 840 1140 / 1140
Balance 840 / 840 1140 / 1140
--- NOTE | 2023-12-11 10:02 | W.DCSUMMARY ---
Discharge Summary
Discharge Data
Date of Admission: 12/03/23
Date of Discharge: 12/11/23
-
Pending Results: No
Hospital Course
68-year-old female with past medical history of COPD came to the hospital with acute hypoxic respiratory insufficiency secondary to acute COPD exacerbation. Patient was seen by pulmonary throughout hospitalization. Initially she was started on
Decadron which was later transitioned to prednisone with taper prior to discharge. She also continues to require oxygen throughout hospitalization. On home O2 evaluation she did require oxygen upon exertion. Patient also had acute right-sided
rectus hematoma which was likely thought was secondary to persistent cough. Her hemoglobin remained stable throughout hospitalization. She was instructed to follow-up with her primary care provider. Patient symptoms continue to improve and later
she was discharged home with instructions to follow-up with all her physicians outpatient.
Discharge Plan
-
Patient Disposition: Home (Routine Discharge)
Discharge Diagnosis/Procedures: Acute Hypoxic Respiratory Insufficiency secondary to Acute COPD Exacerbation
Acute right-sided rectus sheath hematoma
Diet: Regular
Activity: As tolerated
Driving Restrictions: As prior to admission
Bathing Restrictions: None
Blood Work: repeat CBC next week with pcp
Referrals:
Enriqueta Arora CRNP [Family Provider] - in less than 1 week
Rayray Jamison MD [Active] - in two to four weeks
(Or nurse practitioner
Needs full PFTs, 6-minute walk test and yearly low-dose lung cancer screening CT)
Prescriptions:
New
benzonatate 100 mg Capsule
200 mg PO TID Qty: 15 0RF
guaifenesin 600 mg Tablet Extended Release 12hr
600 mg PO Q12 Qty: 14 0RF
pantoprazole [Protonix] 40 mg tablet,delayed release (DR/EC)
40 mg PO DAILY Qty: 30 0RF
(DME) nebulizers Misc
See Rx Instructions .Route Qty: 1 0RF
Rx Instructions:
As directed
ipratropium-albuterol 0.5 mg-3 mg(2.5 mg base)/3 mL Solution For Nebulization
3 ml inhalation R Q4HPRN PRN (Reason: shortness of breath/wheezing) Qty: 180 0RF
prednisone 10 mg Tablet
See Rx Instructions .ROUTE .COMPLEX Qty: 45 0RF
Rx Instructions:
Take By Mouth:
50 mg daily x3 days, 40 mg daily x3 days,
30 mg daily x3 days, 20 mg daily x3 days,
10 mg daily x3 days
Continued
ibuprofen [Advil] 200 mg Tablet
200 mg PO Q6HPRN PRN (Reason: muscle pains)
albuterol sulfate [ProAir HFA] 90 mcg/actuation Hfa Aerosol Inhaler
2 puff INHALATION R Q6HPRN PRN (Reason: sob)
roflumilast 500 mcg Tablet
500 mcg PO DAILY
Trelegy Ellipta 200-62.5-25 mcg Blister With Device
1 inh INHALATION R DAILY
Discharge Orders:
Discharge Patient (As Directed); Ordered 12/11/23
Ordered By: Jamey Hernandes
Discharge Date and Time
Discharge Date/Time: 12/11/23 13:32
Print Language: HUNGARIAN
--- NOTE | 2023-12-11 10:20 | W.PN.PUL.V3 ---
Today's Communication / Plan
-
Wean oxygen
Arrange for home oxygen
Home nebulizers
Prednisone taper
Resumption of Trelegy and Daliresp at home
Assessment
-
68-year-old female with a history of COPD maintained on Trelegy not on home oxygen with long smoking history quit 5 years ago, 'still smoking pot' who presented with COPD exacerbation-pulmonary consulted for COPD exacerbation and pleuritic chest
pain 12/04/2023.
Impression:
COPD-suspect Gold stage III with acute exacerbation
Right-sided pleuritic chest pain- due to right-sided rectus hematoma
Right upper lobe pulmonary nodule as well as other pulmonary nodules
Right abdominal rectus sheath hematoma
Mild hyponatremia - resolved
Hyperglycemia
Conditions present prior to admission:
COPD.
Former [id number]-year quit 5 years ago.
Marijuana smoker.
Solitary kidney.
Nephrectomy.
Tonsillectomy.
Plan
She continues to improve from a pulmonary perspective
Supplemental oxygen as needed-suspect she will require supplemental oxygen at time of discharge
Mucus clearing devices including vest therapy appear to be helping.
Aspiration precautions.
Continue nebulizers-duonebs and Pulmicort.
Mucolytic's continue
Prednisone with slow taper.
Antitussives as needed.
CT chest 12/04/23-negative for pulmonary embolism, upper abdomen, right side rectus hematoma, severe changes of emphysema, spiculated density medial right upper lobe, several small well-defined nodules are also seen in the lung, largest measuring 5 mm
in the right upper lobe and 3 mm in the left upper lobe
Analgesia per primary service-overall pain has improved-told patient to decrease her Dilaudid use if possible and monitor for constipation
Will need a CT chest at a minimum in 3 months -CT chest ION-we will arrange for follow-up after this hospitalization
No obvious signs of infection
Continue to observe off antibiotics
Follow blood sugars - goal >100 and <180
Insulin supplementation as needed
Marijuana smoking cessation counseling ongoing-she states she will quit
DVT prophylaxis- start HSQ 5000 units q12hr as her Hb has been stable
GI prophylaxis-no indication
Increase activity as tolerated
Reviewed with primary team and nursing
Stable for potential discharge-prednisone taper, nebulizers and resumption of Trelegy
Outpatient pulmonary follow-up recommended-needs repeat CT chest ION in 3 months, PFTs, yearly Lung cancer screening, etc.
Diagnostic data:
Chest x-ray 12/03/2023-NAD
CT chest 12/04/23-negative for pulmonary embolism, upper abdomen, right side rectus hematoma, severe changes of emphysema, spiculated density medial right upper lobe, several small well-defined nodules are also seen in the lung, largest measuring 5 mm
in the right upper lobe and 3 mm in the left upper lobe
Subjective Data
-
Date of Service:
Date of Service: December 11, 2023
Chief Complaint: Pulmonary Follow Up and Dyspnea Follow Up
Subjective:
Feels better, less short of breath, less wheezy, still has some dyspnea on exertion, abdominal pain improved,
Review of Systems
General: Other
Objective Data
Data Reviewed
Vital Signs / I&O:
Vital Signs
Temp Pulse Resp BP Pulse Ox
98 F 76 18 151/79 96
12/11/23 07:40 12/11/23 08:21 12/11/23 08:21 12/11/23 07:40 12/11/23 09:10
Intake and Output
12/10/23 12/11/23 12/12/23
06:59 06:59 06:59
Intake Total 840 / 840 1140 / 1140
Balance 840 / 840 1140 / 1140
SaO2: 96
Nasal Cannula flow liters per minute: 2
Physical Exam
General: Respiratory Distress (n) and Comfortable
HEENT: Normocephalic, Anicteric and Moist Mucous Membranes
Cardiovascular: S1-S2 and Peripheral Edema (negative)
Respiratory: Wheeze (Negative), Crackles (Right hemithorax), Rhonchi (Right hemithorax), Non-Labored Respirations, Accessory Resp Muscle Use (n) and Stridor (n)
GI: Soft, Non Distended, Non Tender and Normal Bowel Sounds
Neurology: AO x 3 and Tremors (negative)
Skin: Warm, Dry and Cyanosis (n)
Labs/Micro/Reports
Lab Data
12/11/23 04:51
12/11/23 04:51
--- NOTE | 2023-12-11 10:33 | CM ---
Addendum entered by Gloria Marquez 12/11/23 12:05:
I returned to Felicita's room and she was awake. I made her aware that portable O2 would be delivered to her room around 1PM, and home concentrator and accessories would be delivered to her home later this afternoon.
Plan: Discharge to home with home O2. Felicita's will be taking her home. No other needs identified.
PCP: Enriqueta Arora
Original Note:
O2 order and documentation faxed to [facility] for delivery. Jennifer Wright will deliver portable O2 to pt's room about 1pm for discharge. Home concentrator and accessories will be delivered to home later today.
Felicita was asleep and did not wake to my voice; will return to her room to make her aware of plan for O2 delivery.
[2023-12-11 11:09] VITALS: BP 123/65
== END 2023-12-11 13:32 | disposition home or self-care (01) | DRG 191 ==
LOC: 4 EAST ACU 17:44
PROVIDERS: Physician Assistant; Physician Assistant Medical; ADMITTING PHYSICIAN Internal Medicine; CONSULT PHYSICIAN Internal Medicine Critical Care Medicine; EMERGENCY PHYSICIAN Emergency Medicine; FAMILY PHYSICIAN Nurse Practitioner
DX: J44.1 Chronic obstructive pulmonary disease with (acute) exacerbation (principal); E87.1 Hypo-osmolality and hyponatremia; R09.02 Hypoxemia; R06.89 Other abnormalities of breathing; R03.0 Elevated blood-pressure reading, without diagnosis of hypertension; R91.8 Other nonspecific abnormal finding of lung field; R73.9 Hyperglycemia, unspecified; M79.81 Nontraumatic hematoma of soft tissue; Z87.891 Personal history of nicotine dependence; Z90.5 Acquired absence of kidney; Z88.2 Allergy status to sulfonamides; Z79.51 Long term (current) use of inhaled steroids
CPT/HCPCS: 71046; 71275; 80048; 80053; 82962; 83605; 85025; 85027; 93005; 94640; 94669; 94761; 99285; Q9967

== ENCOUNTER 2024-05-01 10:45 | Outpatient (RCR) | payer MEDICARE, OTHER, SELFPAY | END 2024-05-01 15:00 | disposition home or self-care (01) | LOC: PURB 10:45 | PROVIDERS: ATTENDING PHYSICIAN Internal Medicine Critical Care Medicine; FAMILY PHYSICIAN Nurse Practitioner | DX: J44.9 Chronic obstructive pulmonary disease, unspecified (principal) | CPT/HCPCS: G0237; G0239 ==

== ENCOUNTER → 2024-05-02 10:15 | Outpatient (REF) | payer MEDICARE, OTHER, SELFPAY | LOC: HWRAD 10:15 | PROVIDERS: ATTENDING PHYSICIAN Nurse Practitioner Family; FAMILY PHYSICIAN Nurse Practitioner | DX: R91.8 Other nonspecific abnormal finding of lung field (principal) | CPT/HCPCS: 71250 ==

== ENCOUNTER 2024-05-22 10:45 | Outpatient (RCR) | payer MEDICARE, OTHER, SELFPAY | END 2024-05-22 23:59 | disposition home or self-care (01) | LOC: PURB 10:45 | PROVIDERS: ATTENDING PHYSICIAN Internal Medicine Critical Care Medicine; FAMILY PHYSICIAN Nurse Practitioner | DX: J44.9 Chronic obstructive pulmonary disease, unspecified (principal) | CPT/HCPCS: G0239 ==

== ENCOUNTER → 2024-05-26 06:20 | Day surgery (SDC) | payer MEDICARE, OTHER, SELFPAY ==
[2024-05-20 12:14] VITALS: BMI 28.3
[2024-05-26] VITALS (8 sets, daily range): BP systolic 87–162; BP diastolic 41–82; BMI 30.9
== END ==
LOC: SDS 06:20
PROVIDERS: ATTENDING PHYSICIAN Internal Medicine Critical Care Medicine
DX: R91.8 Other nonspecific abnormal finding of lung field (principal); R59.0 Localized enlarged lymph nodes
CPT/HCPCS: 31629; 31628; 31624; 31623; 31627; 31654; 88172; 88173; 88305; 71045; 76000; 87015; 87070; 87102; 87116; 87205; 88112; 88333; 88341; 88342; 94640; C1887

== ENCOUNTER 2024-07-01 10:45 | Outpatient (RCR) | payer MEDICARE, OTHER, SELFPAY | END 2024-07-01 23:59 | disposition home or self-care (01) | LOC: PURB 10:45 | PROVIDERS: ATTENDING PHYSICIAN Internal Medicine Critical Care Medicine; FAMILY PHYSICIAN Nurse Practitioner | DX: J44.9 Chronic obstructive pulmonary disease, unspecified (principal); R91.8 Other nonspecific abnormal finding of lung field; Z87.891 Personal history of nicotine dependence | CPT/HCPCS: G0239 ==

== ENCOUNTER 2024-07-31 10:45 | Outpatient (RCR) | payer MEDICARE, OTHER, SELFPAY | END 2024-08-01 11:30 | disposition home or self-care (01) | LOC: PURB 10:45 | PROVIDERS: ATTENDING PHYSICIAN Internal Medicine Critical Care Medicine; FAMILY PHYSICIAN Nurse Practitioner | DX: J44.9 Chronic obstructive pulmonary disease, unspecified (principal) | CPT/HCPCS: G0239 ==

== ENCOUNTER 2024-08-05 11:25 | Outpatient (RCR) | payer SELFPAY | END 2024-08-05 23:59 | disposition home or self-care (01) | LOC: PURBM 11:25 | PROVIDERS: ATTENDING PHYSICIAN Internal Medicine Critical Care Medicine | DX: J44.9 Chronic obstructive pulmonary disease, unspecified (principal) ==

== ENCOUNTER 2024-08-07 10:45 | Outpatient (RCR) | payer MEDICARE, OTHER, SELFPAY | END 2024-08-08 10:05 | disposition home or self-care (01) | LOC: PURB 10:45 | PROVIDERS: ATTENDING PHYSICIAN Internal Medicine Critical Care Medicine; FAMILY PHYSICIAN Nurse Practitioner | DX: J44.9 Chronic obstructive pulmonary disease, unspecified (principal) | CPT/HCPCS: G0239 ==

== ENCOUNTER → 2024-09-03 09:45 | Outpatient (REF) | payer MEDICARE, OTHER, SELFPAY | LOC: HWRAD 09:45 | PROVIDERS: ATTENDING PHYSICIAN Internal Medicine Critical Care Medicine; FAMILY PHYSICIAN Nurse Practitioner | DX: R91.8 Other nonspecific abnormal finding of lung field (principal) | CPT/HCPCS: 71250 ==

== ENCOUNTER 2024-12-03 08:41 | Outpatient (RCR) | payer SELFPAY | END 2024-12-03 23:59 | disposition home or self-care (01) | LOC: PURBM 08:41 | PROVIDERS: ATTENDING PHYSICIAN Internal Medicine Critical Care Medicine | DX: J44.9 Chronic obstructive pulmonary disease, unspecified (principal) ==

== ENCOUNTER → 2025-03-06 10:03 | Outpatient (REF) | payer MEDICARE, OTHER, SELFPAY | LOC: HWRAD 10:03 | PROVIDERS: ATTENDING PHYSICIAN Internal Medicine Critical Care Medicine; FAMILY PHYSICIAN Nurse Practitioner | DX: R91.8 Other nonspecific abnormal finding of lung field (principal) | CPT/HCPCS: 71250 ==